=== PATIENT | female | born 1995 | race Caucasian/White ===

== ENCOUNTER 2017-12-12 18:58 | Emergency (ER) | payer OTHER ==
[2017-12-12 19:21] VITALS: BP 117/71
--- NOTE | 2017-12-12 20:02 | ER Document Report ---
ED General - General Chief Complaint: Nausea/Vomiting Stated Complaint: VOMITING Time Seen by Provider: 12/12/17 19:34 TRAVEL OUTSIDE OF THE [place] IN LAST 30 DAYS: No - HPI Notes: Patient is a 22-year-old female who is approximately 8 weeks who presents to the ED complaining of nausea and vomiting intermittently over the last couple weeks with an occasional lower pelvic cramping. Patient states that she did have a visit with her provider a week ago and saw her baby on the monitor. Patient states that she is still able to eat and drink, but does have a decreased p.o. intake due to the nausea and vomiting. She has not been taking any medicines for her symptoms. She has not noticed any vaginal discharge, odor, or bleeding. She has not had any other recent illness. Patient states that she does feel weak on occasion as well. Denies any IV drug use alcohol involvement. Denies any headache, fever, neck pain, URI, sore throat, chest pain, palpitations, syncope, cough, shortness of breath, wheeze, dyspnea, current abdominal pain, diarrhea, urinary retention, dysuria, hematuria , back pain, loss of control of bowel or bladder, numbness/tingling, saddle anesthesia, muscle paralysis/weakness, or rash. - Related Data Allergies/Adverse Reactions: Penicillins Allergy (Verified 12/12/17 19:00) Past Medical History - Social History Smoking Status: Unknown if Ever Smoked Family History: Reviewed & Not Pertinent Review of Systems - Review of Systems -: Yes All other systems reviewed and negative Physical Exam - Vital signs Vitals: Temp Pulse Resp BP Pulse Ox 98.4 F 74 14 117/71 98 12/12/17 19:20 12/12/17 19:20 12/12/17 19:20 12/12/17 19:20 12/12/17 19:20 - Notes Notes: PHYSICAL EXAMINATION: GENERAL: Well-appearing, well-nourished and in no acute distress. HEAD: Atraumatic, normocephalic. EYES: Pupils equal round and reactive to light, extraocular movements intact, sclera anicteric, conjunctiva are normal. ENT: Nares patent and without discharge. oropharynx clear without exudates. No tonsilar hypertrophy or erythema. Moist mucous membranes. NECK: Normal range of motion, supple without lymphadenopathy LUNGS: Breath sounds clear to auscultation bilaterally and equal. No wheezes rales or rhonchi. HEART: Regular rate and rhythm without murmurs, rubs, gallops. ABDOMEN: Soft, nontender, nondistended abdomen. No guarding, no rebound. No masses appreciated. Normal bowel sounds present. No CVA tenderness bilaterally. Musculoskeletal: FROM to passive/active. Strength 5+/5. Extremities: No cyanosis, clubbing, or edema b/l. Peripheral pulses 2+. Capillary refill less than 3 seconds. NEUROLOGICAL: Normal speech, normal gait. Normal sensory, motor exams PSYCH: Normal mood, normal affect. SKIN: Warm, Dry, normal turgor, no rashes or lesions noted. Course - Re-evaluation Re-evalutation: 12/12/17 22:33 Patient is an afebrile, well-hydrated, 22-year-old female who presents to the ED with nausea, vomiting, intermittent pelvic pain, suspect secondary to her at this time. Vitals are acceptable. PE is otherwise unremarkable. CBC, CMP, urinalysis were unremarkable for any acute pathology. See hCG. heart tones were not able to be heard at this time which is most likely due to her being early in her . She is tolerating p.o. without any difficulties. Zofran was given p.o. No other labs or imaging warranted at this time based on H&P. Patient has no significant tachycardia, tachypnea, or hypoxia. She is nontoxic-appearing. Patient's abdomen is soft and nontender at this time. Based on H&P today I have low suspicion for acute appendicitis, bowel obstruction, acute cholecystitis, acute cholangitis, perforated diverticulitis, incarcerated hernia, pancreatitis, perforated ulcer, peritonitis , sepsis, or other systemic emergent condition at this time. Patient is aware that her condition can change from initial presentation and she needs to monitor symptoms closely and seek medical attention if any acute changes. Rx for zofran. Strict return precautions. Conservative measures otherwise for symptoms. Recheck with OBGYN in 2-3 days. Recheck with your PCM in 2-3 days. Return to the ED with any worsening/concerning symptoms otherwise as reviewed in discharge. Patient is in agreement. - Vital Signs Vital signs: Temp Pulse Resp BP Pulse Ox 98.4 F 74 14 117/71 98 12/12/17 19:20 12/12/17 19:20 12/12/17 19:20 12/12/17 19:20 12/12/17 19:20 - Laboratory Result Diagrams: 12/12/17 20:24 12/12/17 20:24 Laboratory results interpreted by me: 12/12/17 12/12/17 12/12/17 20:24 20:24 20:33 WBC 14.8 H Absolute Neutrophils 10.8 H Beta HCG, Quant 113451.00 H Urine Ketones 20 H Ur Leukocyte Esterase SMALL H Discharge - Discharge Clinical Impression: Pelvic pain affecting Qualifiers: Trimester: first trimester Qualified Code(s): O26.891 - Other specified related conditions, first trimester; R10.2 - Pelvic and perineal pain ; R10.2 - Pelvic and perineal pain Condition: Stable Disposition: HOME, SELF-CARE Instructions: Pelvic Pain in ([facility]) Additional Instructions: Maintain fluid intake Proper hygenic technique Keep the skin clean Tylenol as needed Return immediately if symptoms worsen F/u with your PCM/OBGYN in 2-3 days for a recheck Return to the ED with any development of ASTORGA/fever, trouble with vision, eye redness, worsening pain, urethral discharge, urinary retention, blood in the urine, worsening abdominal pain, n/v, Chest Pain, shortness of breath, joint pains, trouble breathing, vaginal discharge/bleeding, or any other worsening/ concerning symptoms as needed otherwise. Prescriptions: Ondansetron [Zofran Odt 4 mg Tablet] 1 - 2 tab PO Q4H PRN #15 tab.rapdis PRN Reason: For Nausea/Vomiting Referrals: [facility] [Provider Group] - Follow up as needed
[2017-12-12] MEDS ORDERED: ONDANSETRON 4 MG TAB.RAPDIS PO ONE (20:42)
[2017-12-12 20:43] LABS: ABSOLUTE BASOPHILS # (AUTO) 0.1 10^3/uL (0.0-0.2); ABSOLUTE EOSINOPHILS # (AUTO) 0.1 10^3/uL (0.0-0.6); ABSOLUTE LYMPHOCYTES (AUTO) 2.8 10^3/uL (0.5-4.7); ABSOLUTE NEUT (AUTO) 10.8 10^3/uL (1.7-8.2); BASOPHILS % (AUTO) 0.5 % (0-2); EOSINOPHILS % (AUTO) 0.8 % (0-6); HEMATOCRIT 40.2 % (36.0-47.0); HEMOGLOBIN 13.6 g/dL (12.0-15.5); LYMPHOCYTES % (AUTO) 18.9 % (13-45); MEAN CORPUSCULAR HEMOGLOBIN 30.6 pg (27.0-33.4); MEAN CORPUSCULAR HGB CONC 33.9 g/dL (32.0-36.0); MEAN CORPUSCULAR VOLUME 90 fl (80-97); MONOCYTES % (AUTO) 6.8 % (3-13); PLATELET COUNT 299 10^3/uL (150-450); RED BLOOD COUNT 4.45 10^6/uL (3.72-5.28); RED CELL DISTRIBUTION WIDTH 13.7 % (11.5-14.0); TOTAL CELLS COUNTED % (AUTO) 100 %; WHITE BLOOD COUNT 14.8 10^3/uL (4.0-10.5)
[2017-12-12 20:48] LABS: APPEARANCE,URINE CLEAR; BILIRUBIN,URINE NEGATIVE (NEGATIVE); COLOR,URINE YELLOW; GLUCOSE, URINE NEGATIVE (NEGATIVE); KETONES,URINE 20 mg/dL (NEGATIVE); LEUKOCYTE ESTERASE,URINE SMALL (NEGATIVE); NITRITE,URINE NEGATIVE (NEGATIVE); PROTEIN,URINE NEGATIVE (NEGATIVE); URINE SPECIFIC GRAVITY 1.004; UROBILINOGEN,URINE NEGATIVE mg/dL (<2.0)
[2017-12-12 20:58] LABS: ALANINE AMINOTRANSFERASE 39 U/L (9-52); ALBUMIN 4.5 g/dL (3.5-5.0); ALKALINE PHOSPHATASE 59 U/L (38-126); ANION GAP 17 (5-19); ASPARTATE AMINO TRANSFERASE 25 U/L (14-36); BILIRUBIN,DIRECT 0.3 mg/dL (0.0-0.4); BILIRUBIN,TOTAL 0.5 mg/dL (0.2-1.3); BLOOD UREA NITROGEN 7 mg/dL (7-20); CALCIUM 10.2 mg/dL (8.4-10.2); CARBON DIOXIDE 22 mmol/L (22-30); CHLORIDE 102 mmol/L (98-107); GLUCOSE 78 mg/dL (75-110); TOTAL PROTEIN 7.6 g/dL (6.3-8.2)
== END 2017-12-12 23:16 | disposition home or self-care (01) ==
LOC: ER 18:58
DX: O26.891 Other specified pregnancy related conditions, first trimester (principal); R10.2 Pelvic and perineal pain; R53.1 Weakness; O21.9 Vomiting of pregnancy, unspecified; Z3A.00 Weeks of gestation of pregnancy not specified; Z88.0 Allergy status to penicillin
CPT/HCPCS: 99284; 36415; 84702; 85025; 80053; 81001; S0119

== ENCOUNTER 2017-12-17 15:23 | Observation (INO) | payer OTHER ==
[2017-12-17] MEDS ORDERED: PROMETHAZINE HCL INJ 25 MG/1 ML VIAL IV PRN (16:25)
[2017-12-17] MEDS ORDERED: DEXTROSE 5%-LACTATED RINGERS 1,000 ML IV PRN (16:27)
[2017-12-17] MEDS ORDERED: NORMAL SALINE 1000 ML 1,000 ML IV PRN (16:27)
[2017-12-17 17:05] LABS: ABSOLUTE BASOPHILS # (AUTO) 0.1 10^3/uL (0.0-0.2); ABSOLUTE EOSINOPHILS # (AUTO) 0.1 10^3/uL (0.0-0.6); ABSOLUTE LYMPHOCYTES (AUTO) 2.3 10^3/uL (0.5-4.7); ABSOLUTE NEUT (AUTO) 9.7 10^3/uL (1.7-8.2); BASOPHILS % (AUTO) 0.4 % (0-2); EOSINOPHILS % (AUTO) 0.6 % (0-6); HEMOGLOBIN 13.2 g/dL (12.0-15.5); LYMPHOCYTES % (AUTO) 17.4 % (13-45); MEAN CORPUSCULAR HEMOGLOBIN 30.5 pg (27.0-33.4); MEAN CORPUSCULAR HGB CONC 33.9 g/dL (32.0-36.0); MEAN CORPUSCULAR VOLUME 90 fl (80-97); MONOCYTES % (AUTO) 7.4 % (3-13); PLATELET COUNT 268 10^3/uL (150-450); RED BLOOD COUNT 4.33 10^6/uL (3.72-5.28); RED CELL DISTRIBUTION WIDTH 13.9 % (11.5-14.0); SEGMENTED NEUTROPHILS % (AUTO) 74.2 % (42-78); TOTAL CELLS COUNTED % (AUTO) 100 %; WHITE BLOOD COUNT 13.1 10^3/uL (4.0-10.5)
[2017-12-17 17:20] LABS: ALANINE AMINOTRANSFERASE 45 U/L (9-52); ALBUMIN 4.4 g/dL (3.5-5.0); ALKALINE PHOSPHATASE 56 U/L (38-126); ANION GAP 17 (5-19); ASPARTATE AMINO TRANSFERASE 40 U/L (14-36); BILIRUBIN,DIRECT 0.4 mg/dL (0.0-0.4); BILIRUBIN,TOTAL 0.6 mg/dL (0.2-1.3); BLOOD UREA NITROGEN 8 mg/dL (7-20); CALCIUM 10.1 mg/dL (8.4-10.2); CARBON DIOXIDE 24 mmol/L (22-30); CHLORIDE 102 mmol/L (98-107); GLUCOSE 105 mg/dL (75-110); POTASSIUM 3.8 mmol/L (3.6-5.0); SODIUM 142.6 mmol/L (137-145); TOTAL PROTEIN 7.5 g/dL (6.3-8.2)
[2017-12-17 18:38] LABS: AMORPHOUS SEDIMENT,URINE TRACE /HPF; APPEARANCE,URINE CLOUDY; BILIRUBIN,URINE NEGATIVE (NEGATIVE); CALCIUM OXALATE CRYSTALS,URINE FEW /HPF; GLUCOSE, URINE NEGATIVE (NEGATIVE); KETONES,URINE NEGATIVE (NEGATIVE); LEUKOCYTE ESTERASE,URINE MODERATE (NEGATIVE); NITRITE,URINE NEGATIVE (NEGATIVE); PROTEIN,URINE NEGATIVE (NEGATIVE); URINE SPECIFIC GRAVITY 1.024
[2017-12-17 18:40] LABS: COLOR,URINE YELLOW
[2017-12-17] MEDS: ONDANSETRON 4 MG TAB.RAPDIS PO PRN (22:51)
[2017-12-18 07:21] LABS: ALANINE AMINOTRANSFERASE 55 U/L (9-52); ALBUMIN 3.4 g/dL (3.5-5.0); ALKALINE PHOSPHATASE 49 U/L (38-126); ANION GAP 11 (5-19); ASPARTATE AMINO TRANSFERASE 35 U/L (14-36); BILIRUBIN,DIRECT 0.3 mg/dL (0.0-0.4); BILIRUBIN,TOTAL 0.6 mg/dL (0.2-1.3); BLOOD UREA NITROGEN 3 mg/dL (7-20); CALCIUM 9.1 mg/dL (8.4-10.2); CARBON DIOXIDE 20 mmol/L (22-30); CHLORIDE 109 mmol/L (98-107); GLUCOSE 81 mg/dL (75-110); POTASSIUM 3.5 mmol/L (3.6-5.0); SODIUM 140.4 mmol/L (137-145)
[2017-12-18] MEDS: ONDANSETRON 4 MG TAB.RAPDIS PO PRN (08:20)
[2017-12-18 12:09] VITALS: BP 116/61
--- NOTE | 2017-12-20 22:30 | DISCHARGE SUMMARY E ---
Discharge Summary NAME: TRACY LAN : 1995 AGE: 22Y ADMITTED: 12/17/2017 DISCHARGED: 12/18/2017 FINAL DIAGNOSES: 1. Intrauterine 8 weeks with hyperemesis gravidarum. 2. Dehydration. HISTORY OF PRESENT ILLNESS: This is a 22-year-old, 1, para 0, whose last menstrual period was 10/18, known to be 8 weeks and was having problems with hyperemesis, dehydration, and weight loss. She was evaluated in the office, found to be dehydrated, and it was elected to bring her in the hospital for further evaluation and treatment. PAST MEDICAL HISTORY: Essentially negative. ALLERGIES: She is allergic to PENICILLIN. MEDICATIONS: She was currently taking Zofran and B6, because of the hyperemesis. VITAL SIGNS: At the time of admission her weight was 169 pounds with *------* that is about a 7 pound weight loss over previous measurement. Height was 60 inches, blood pressure 102/70, temperature was 98.5, BMI was 33, pulse was 104, pO2 was 96. REVIEW OF SYSTEMS: Revealed HEENT to be within normal limits. Trachea was midline. Thyroid was not enlarged. Lungs were clear. Heart regular rhythm without murmurs. Abdomen is soft, nondistended, nontender with no organomegaly. Pelvic examination was consistent with an 8 week intrauterine , positive heart rate, positive movement on Sono. Extremities were within normal limits. Neuro system revealed orientated x3 with motor, cranial, and sensory nerves being grossly intact. DIAGNOSTICS: At the time of admission her white count was 13.1, hemoglobin 13.2, platelets was 268. Sodium was 142, potassium 3.8, chloride is 102. Liver enzymes revealed AST at 40, ALT at 45. She had a GFR greater than 60. HOSPITAL COURSE: It was our impression to rehydrate her with IVs and treated for the nausea and vomiting. She was started on IV rehydration therapy alternating normal saline with ringers lactated, 5% dextrose. We came in the next day. She had experienced no additional nausea or vomiting. No vaginal bleeding at the time. On 12/18, her temperature was 98.5, blood pressure was 112/62, pulse was 59, respirations were 16. She was still a little bit nauseated but as stated no vomiting. She was alert. Motor, cranial, and sensory nerves intact. Lungs were clear. Heart regular rhythm without murmurs, abdomen was soft. At that time the assessment was that she had been adequately rehydrated. She was sent on a BRAT diet. She was to follow up with us in the office on 12/20/2017. DICTATING PHYSICIAN: AVINASH JUNIOR M.D. [id number] PHY#: [id number] ID: [id number] JOB#: [id number] ACCT: [id number] cc:AVINASH JUNIOR M.D. >
== END 2017-12-18 12:31 | disposition home or self-care (01) ==
LOC: 2S 15:23
PROVIDERS: ADMIT Obstetrics & Gynecology; ATTEND Obstetrics & Gynecology
DX: O21.1 Hyperemesis gravidarum with metabolic disturbance (principal); Z3A.08 8 weeks gestation of pregnancy; R63.4 Abnormal weight loss; Z68.33 Body mass index [BMI] 33.0-33.9, adult
CPT/HCPCS: 86900; 86901; 36415 ×2; 86850; 85025; 86592; 80053 ×2; 81001; G0378 ×2; G0379; S0119 ×2; J7030

== ENCOUNTER 2018-04-04 06:43 | Outpatient (CLI) | payer OTHER ==
[2018-04-04 08:16] LABS: APPEARANCE,URINE CLOUDY; BILIRUBIN,URINE NEGATIVE (NEGATIVE); COLOR,URINE YELLOW; GLUCOSE, URINE NEGATIVE (NEGATIVE); KETONES,URINE NEGATIVE (NEGATIVE); LEUKOCYTE ESTERASE,URINE TRACE (NEGATIVE); NITRITE,URINE NEGATIVE (NEGATIVE); PROTEIN,URINE NEGATIVE (NEGATIVE); URINE SPECIFIC GRAVITY 1.015; UROBILINOGEN,URINE NEGATIVE mg/dL (<2.0)
[2018-04-04 08:26] LABS: URINE AMPHETAMINES SCREEN NEGATIVE; URINE BARBITURATES SCREEN NEGATIVE; URINE BENZODIAZEPINES SCREEN NEGATIVE; URINE COCAINE SCREEN NEGATIVE; URINE MARIJUANA (THC) SCREEN NEGATIVE; URINE METHADONE SCREEN NEGATIVE; URINE PHENCYCLIDINE SCREEN NEGATIVE
[2018-04-04 09:14] LABS: ABSOLUTE EOSINOPHILS # (AUTO) 0.2 10^3/uL (0.0-0.6); ABSOLUTE LYMPHOCYTES (AUTO) 2.4 10^3/uL (0.5-4.7); ABSOLUTE NEUT (AUTO) 8.6 10^3/uL (1.7-8.2); BASOPHILS % (AUTO) 0.4 % (0-2); HEMATOCRIT 29.7 % (36.0-47.0); HEMOGLOBIN 10.5 g/dL (12.0-15.5); LYMPHOCYTES % (AUTO) 19.6 % (13-45); MEAN CORPUSCULAR HEMOGLOBIN 33.5 pg (27.0-33.4); MEAN CORPUSCULAR HGB CONC 35.2 g/dL (32.0-36.0); MEAN CORPUSCULAR VOLUME 95 fl (80-97); PLATELET COUNT 287 10^3/uL (150-450); RED BLOOD COUNT 3.13 10^6/uL (3.72-5.28); RED CELL DISTRIBUTION WIDTH 13.7 % (11.5-14.0); TOTAL CELLS COUNTED % (AUTO) 100 %; WHITE BLOOD COUNT 12.3 10^3/uL (4.0-10.5)
--- NOTE | 2018-04-04 09:45 | RADIOLOGY REPORT (SQ) ---
EXAM DESCRIPTION: U/S OB LIMITED COMPLETED DATE/TIME: 04/04/2018 9:34 am REASON FOR STUDY: cervical length for complaints of pressure COMPARISON: None. TECHNIQUE: Limited transabdominal grayscale ultrasound for evaluation of specific requested obstetri pop parameters. LIMITATIONS: None. FINDINGS: CERVICAL LENGTH: 4.8 cm. Closed. HEVER: 14.1 cm. FHR: 147 beats per minute. PRESENTATION: Cephalic. PLACENTA: Posterior. OTHER: No other significant findings. IMPRESSION: LIMITED OBSTETRICAL ULTRASOUND WITH MEASURED PARAMETERS DELINEATED ABOVE. Trimester of : Second trimester - 13 weeks 1 day to 27 weeks 6 days. TECHNICAL DOCUMENTATION: JOB ID: [id number] [employer]- All Rights Reserved Reading location - IP/workstation name: ENGINEER OF SYSTEM [email or web address]
== END 2018-04-04 11:30 | disposition home or self-care (01) ==
LOC: LC 06:43
PROVIDERS: ATTEND Obstetrics & Gynecology Gynecology
PROC: 4A1HXCZ Monitoring of Products of Conception, Cardiac Rate, External Approach (ICD-10-PCS; principal; 2018-04-04)
DX: O26.892 Other specified pregnancy related conditions, second trimester (principal); R10.2 Pelvic and perineal pain; O99.282 Endocrine, nutritional and metabolic diseases complicating pregnancy, second trimester; E86.0 Dehydration; Z3A.24 24 weeks gestation of pregnancy
CPT/HCPCS: 36415; 76815; 80307; 81001; 85025; 94760

== ENCOUNTER 2018-04-28 21:18 | Outpatient (CLI) | payer OTHER ==
[2018-04-28 22:05] LABS: APPEARANCE,URINE CLOUDY; BILIRUBIN,URINE NEGATIVE (NEGATIVE); COLOR,URINE AMBER; GLUCOSE, URINE NEGATIVE (NEGATIVE); KETONES,URINE 20 mg/dL (NEGATIVE); LEUKOCYTE ESTERASE,URINE MODERATE (NEGATIVE); NITRITE,URINE NEGATIVE (NEGATIVE); PROTEIN,URINE 100 mg/dL (NEGATIVE); URINE SPECIFIC GRAVITY 1.024; UROBILINOGEN,URINE NEGATIVE mg/dL (<2.0)
[2018-04-28 22:19] LABS: URINE AMPHETAMINES SCREEN NEGATIVE; URINE BARBITURATES SCREEN NEGATIVE; URINE BENZODIAZEPINES SCREEN NEGATIVE; URINE COCAINE SCREEN NEGATIVE; URINE MARIJUANA (THC) SCREEN NEGATIVE; URINE METHADONE SCREEN NEGATIVE; URINE PHENCYCLIDINE SCREEN NEGATIVE
== END 2018-04-28 22:20 | disposition home or self-care (01) ==
LOC: LC 21:18
PROVIDERS: ATTEND Obstetrics & Gynecology
PROC: 4A1HXCZ Monitoring of Products of Conception, Cardiac Rate, External Approach (ICD-10-PCS; principal; 2018-04-28)
DX: O26.892 Other specified pregnancy related conditions, second trimester (principal); R10.9 Unspecified abdominal pain; Z3A.27 27 weeks gestation of pregnancy
CPT/HCPCS: 80307; 81001

== ENCOUNTER 2018-05-19 13:00 | Outpatient (CLI) | payer OTHER ==
[2018-05-19 13:06] VITALS: BP 129/75
--- NOTE | 2018-05-19 13:41 | ER Document Report ---
ED Medical Screen (RME) - General Chief Complaint: Nausea/Vomiting Stated Complaint: VOMITING Notes: Patient is a 23-year-old female that is approximately 30 weeks , complains of nausea and vomiting, seen by triage nursing, and will be disposition to L&D, for evaluation. Vital signs reviewed. Hemodynamically stable, no tachycardia, blood pressure 129/75 I did not personally see or evaluate this patient. TRAVEL OUTSIDE OF THE [place] IN LAST 30 DAYS: No - Related Data Allergies/Adverse Reactions: Penicillins Allergy (Verified 04/28/18 21:33) shellfish derived Allergy (Verified 04/28/18 21:33) Past Medical History Renal/ Medical History: Denies: Hx Peritoneal Dialysis Physical Exam - Vital signs Vitals: Temp Pulse Resp BP Pulse Ox 98.6 F 79 16 129/75 H 98 05/19/18 13:05 05/19/18 13:05 05/19/18 13:05 05/19/18 13:05 05/19/18 13:05 Course - Vital Signs Vital signs: Temp Pulse Resp BP Pulse Ox 98.6 F 79 16 129/75 H 98 05/19/18 13:05 05/19/18 13:05 05/19/18 13:05 05/19/18 13:05 05/19/18 13:05 Doctor's Discharge - Discharge Clinical Impression: Nausea & vomiting Qualifiers: Vomiting type: unspecified Vomiting Intractability: unspecified Qualified Code( s): R11.2 - Nausea with vomiting, unspecified Condition: Stable Disposition: LABOR CHECK
[2018-05-19] MEDS ORDERED: RINGERS SOLUTION,LACTATED 1,000 ML IV ONE (14:11)
[2018-05-19 14:23] LABS: APPEARANCE,URINE CLOUDY; BILIRUBIN,URINE NEGATIVE (NEGATIVE); CALCIUM OXALATE CRYSTALS,URINE MODERATE /HPF; GLUCOSE, URINE NEGATIVE (NEGATIVE); KETONES,URINE 80 mg/dL (NEGATIVE); LEUKOCYTE ESTERASE,URINE SMALL (NEGATIVE); NITRITE,URINE NEGATIVE (NEGATIVE); PROTEIN,URINE 30 mg/dL (NEGATIVE); URINE SPECIFIC GRAVITY 1.023; UROBILINOGEN,URINE NEGATIVE mg/dL (<2.0)
[2018-05-19 14:26] LABS: COLOR,URINE YELLOW
[2018-05-19 14:45] LABS: URINE AMPHETAMINES SCREEN NEGATIVE; URINE BARBITURATES SCREEN NEGATIVE; URINE BENZODIAZEPINES SCREEN NEGATIVE; URINE COCAINE SCREEN NEGATIVE; URINE MARIJUANA (THC) SCREEN NEGATIVE; URINE METHADONE SCREEN NEGATIVE; URINE PHENCYCLIDINE SCREEN NEGATIVE
== END 2018-05-19 15:32 | disposition admitted as inpatient to this hospital (09) ==
LOC: EDSTATUS 13:34 → LC 13:35
PROVIDERS: ATTEND Obstetrics & Gynecology Gynecology
PROC: 4A1HXCZ Monitoring of Products of Conception, Cardiac Rate, External Approach (ICD-10-PCS; principal; 2018-05-19)
DX: O99.283 Endocrine, nutritional and metabolic diseases complicating pregnancy, third trimester (principal); E86.0 Dehydration; R11.2 Nausea with vomiting, unspecified; Z3A.30 30 weeks gestation of pregnancy
CPT/HCPCS: 80307; 81001

== ENCOUNTER 2018-05-26 17:39 | Outpatient (CLI) | payer OTHER ==
[2018-05-26 18:35] LABS: APPEARANCE,URINE TURBID; BILIRUBIN,URINE NEGATIVE (NEGATIVE); COLOR,URINE AMBER; GLUCOSE, URINE NEGATIVE (NEGATIVE); KETONES,URINE 80 mg/dL (NEGATIVE); LEUKOCYTE ESTERASE,URINE LARGE (NEGATIVE); NITRITE,URINE NEGATIVE (NEGATIVE); PROTEIN,URINE 100 mg/dL (NEGATIVE); URINE SPECIFIC GRAVITY 1.025; UROBILINOGEN,URINE NEGATIVE mg/dL (<2.0)
[2018-05-26 18:49] LABS: URINE AMPHETAMINES SCREEN NEGATIVE; URINE BARBITURATES SCREEN NEGATIVE; URINE BENZODIAZEPINES SCREEN NEGATIVE; URINE COCAINE SCREEN NEGATIVE; URINE MARIJUANA (THC) SCREEN NEGATIVE; URINE METHADONE SCREEN NEGATIVE; URINE PHENCYCLIDINE SCREEN NEGATIVE
== END 2018-05-26 18:55 | disposition home or self-care (01) ==
LOC: LC 17:39
PROVIDERS: ATTEND Obstetrics & Gynecology
PROC: 4A1HXCZ Monitoring of Products of Conception, Cardiac Rate, External Approach (ICD-10-PCS; principal; 2018-05-26)
DX: O99.613 Diseases of the digestive system complicating pregnancy, third trimester (principal); K52.9 Noninfective gastroenteritis and colitis, unspecified; Z3A.31 31 weeks gestation of pregnancy
CPT/HCPCS: 80307; 81001

== ENCOUNTER 2018-06-14 19:46 | Outpatient (CLI) | payer OTHER ==
[2018-06-14 21:27] LABS: APPEARANCE,URINE CLOUDY; BILIRUBIN,URINE NEGATIVE (NEGATIVE); COLOR,URINE YELLOW; GLUCOSE, URINE NEGATIVE (NEGATIVE); KETONES,URINE NEGATIVE (NEGATIVE); LEUKOCYTE ESTERASE,URINE MODERATE (NEGATIVE); NITRITE,URINE NEGATIVE (NEGATIVE); PROTEIN,URINE 30 mg/dL (NEGATIVE); URINE SPECIFIC GRAVITY 1.024; UROBILINOGEN,URINE NEGATIVE mg/dL (<2.0)
[2018-06-14 21:38] LABS: URINE AMPHETAMINES SCREEN NEGATIVE; URINE BARBITURATES SCREEN NEGATIVE; URINE BENZODIAZEPINES SCREEN NEGATIVE; URINE COCAINE SCREEN NEGATIVE; URINE MARIJUANA (THC) SCREEN NEGATIVE; URINE METHADONE SCREEN NEGATIVE; URINE PHENCYCLIDINE SCREEN NEGATIVE
--- NOTE | 2018-06-14 22:31 | Non Stress Test Report ---
Non Stress Test Datetime Report Generated by CPN: 06/14/2018 22:30 DEMOGRAPHIC EGA NST: 34.1 INDICATION Indication for Study: Ordered by Provider; Other Indication for Study (NST) Other: Labor check VITAL SIGNS Temperature - NST: 96.8 Pulse - NST: 63 RESP - NST: 16 NBPSYS NST: 115 NBPDIA NST: 72 URINE RESULTS Urine Protein, NST: Positive Urine Ketones - NST: Negative Urine Glucose - NST: Negative Urine Blood - NST: Negative MONITORING Monitor Explained: Monitor Explained; Test Explained; Patient Verbalized Understanding Time on Monitor: 06/14/2018 20:25 Time off Monitor: 06/14/2018 22:21 NST Duration: 116 NST INTERVENTIONS NST Interventions: PO Hydration; Reposition Patient Physician Notified NST: Dr. Kenny BABY A: [id number] BABY A Movement : Present Contraction Frequency : None FHR Baseline : 125 Accelerations : 15X15 Decelerations : None Variability : Moderate 6-25bpm NST Review: Meets Criteria for Reactive NST NST Review and Verified By : B.Ring RN NST Results: Reactive NST REPORT Report Trigger: Send Report
== END 2018-06-14 22:21 | disposition home or self-care (01) ==
LOC: LC 19:46
PROVIDERS: ATTEND Obstetrics & Gynecology
PROC: 4A1HXCZ Monitoring of Products of Conception, Cardiac Rate, External Approach (ICD-10-PCS; principal; 2018-06-14)
DX: Z34.93 Encounter for supervision of normal pregnancy, unspecified, third trimester (principal); Z3A.34 34 weeks gestation of pregnancy
CPT/HCPCS: 59025; 80307; 81001; 84112

== ENCOUNTER 2019-02-09 00:29 | Emergency (ER) | payer OTHER ==
[2019-02-09] MEDS ORDERED: LIDOCAINE 2% VISCOUS SOLN 20 ML UDCUP PO ONE (03:56)
[2019-02-09] MEDS ORDERED: MAG HYDROX/AL HYDROX/SIMETH SUSP 30 ML UDCUP PO ONE (03:56)
[2019-02-09] MEDS ORDERED: METOCLOPRAMIDE HCL ORAL SOLN 10 MG/10 ML UDCUP PO ONE (03:56)
--- NOTE | 2019-02-09 04:08 | ER Document Report ---
ED GI/ - General Chief Complaint: Epigastric Pain Stated Complaint: STOMACH AND BACK PAIN Time Seen by Provider: 02/09/19 03:56 Primary Care Provider: AVINASH JUNIOR MD [Primary Care Provider] - Follow up as needed Notes: 24-year-old female patient emergency part chief complaint of abdominal pain. Patient states that she was seen at another ER 12 hours ago and told she probably had an ulcer and was given medicine but states that the medicine is not working. Cannot tell me what medicine that is though. States that she wants something for the pain. States that she received labs and an ultrasound TRAVEL OUTSIDE OF THE [place] IN LAST 30 DAYS: No - HPI Patient complains to provider of: Abdominal pain Quality of pain: Stabbing Severity at maximum: Moderate Severity in ED: Moderate Pain Level: 5 Location: Epigastric Vaginal bleeding (Compared to normal period): None - Related Data Allergies/Adverse Reactions: Penicillins Allergy (Verified 06/14/18 20:14) shellfish derived Allergy (Verified 06/14/18 20:14) Past Medical History - General Information source: Patient - Social History Smoking Status: Never Smoker Chew tobacco use (# tins/day): No Frequency of alcohol use: None Drug Abuse: None Lives with: Family Family History: Reviewed & Not Pertinent Patient has suicidal ideation: No Patient has homicidal ideation: No - Medical History Medical History: Negative Renal/ Medical History: Denies: Hx Peritoneal Dialysis Review of Systems - Review of Systems Notes: Constitutional: denies: Chills, Diaphoresis, Fever, Malaise, Weakness EENT: denies: Eye discharge, Blurred vision, Tearing, Double vision, Nose congestion, Nose discharge, Throat swelling, Mouth pain Cardiovascular: denies: Palpitations, Heart racing, Orthopnea, Dyspnea, Chest pain Respiratory: denies: Cough, Hurts to breathe, Wheezing, Shortness of breath Gastrointestinal: Positive epigastric abdominal pain, nausea and vomiting, no diarrhea. Genitourinary: denies: Burning, Dysuria, Discharge, Frequency, Flank pain, Hematuria Musculoskeletal: denies: Joint pain, Joint swelling, Muscle pain, Muscle stiffness, back pain Hematologic/Lymphatic: denies: Anemia, Easy bleeding, Easy bruising, Blood clots Neurological/Psychological: denies: Confusion, Dementia, Depression, Loss of consciousness Skin: No lesions, no masses, no skin breakdown, no abscesses Physical Exam - Vital signs Vitals: Temp Pulse Resp BP Pulse Ox 98.7 F 93 17 142/90 H 100 02/09/19 00:43 02/09/19 00:43 02/09/19 00:43 02/09/19 00:43 02/09/19 00:43 Interpretation: Normal - General General appearance: Appears well, Alert - HEENT Head: Normocephalic, Atraumatic Eyes: Normal Pupils: PERRL - Respiratory Respiratory status: No respiratory distress Chest status: Nontender Breath sounds: Normal Chest palpation: Normal - Cardiovascular Rhythm: Regular Heart sounds: Normal auscultation Murmur: No - Abdominal Inspection: Normal Distension: No distension Bowel sounds: Normal Tenderness: Tender - Mild tenderness to palpation in the epigastric region. No guarding or rebound. Organomegaly: No organomegaly - Back Back: Normal, Nontender - Extremities General upper extremity: Normal inspection, Nontender, Normal color, Normal ROM, Normal temperature General lower extremity: Normal inspection, Nontender, Normal color, Normal ROM, Normal temperature, Normal weight bearing. No: Awa's sign - Neurological Neuro grossly intact: Yes Cognition: Normal Orientation: AAOx4 Domitila Coma Scale Eye Opening: Spontaneous [place] Coma Scale Verbal: Oriented [place] Coma Scale Motor: Obeys Commands Domitila Coma Scale Total: 15 Speech: Normal Motor strength normal: LUE, RUE, LLE, RLE Sensory: Normal - Psychological Associated symptoms: Normal affect, Normal mood - Skin Skin Temperature: Warm Skin Moisture: Dry Skin Color: Normal Course - Re-evaluation Re-evalutation: 02/09/19 04:45 A xiomara conversation was had with patient with regards to her expectations of the visit today. She was seen in another ER 12 hours ago with labs and ultrasound and a prescription for something which she does not know what it is because she did not bring it with her. States that she just wants something for the pain. I did a bedside ultrasound of the right upper quadrant which did not reveal any gallbladder wall thickness, no stones, no pericholecystic fluid and no obvious common bile duct dilation. Do not feel greatly compelled at this time to do any further imaging unless her labs come back abnormal. She has normal vital signs. 02/09/19 06:58 Laboratory 02/09/19 02/09/19 05:13 05:13 Sodium 140.0 Potassium 4.1 Chloride 105 Carbon Dioxide 22 Anion Gap 13 BUN 9 Creatinine 0.58 Est GFR ( Amer) > 60 Est GFR (Non-Af Amer) > 60 Glucose 123 H Calcium 9.7 Total Bilirubin 0.3 Direct Bilirubin 0.2 Neonat Total Bilirubin Not Reportable Neonat Direct Bilirubin Not Reportable Neonat Indirect Bili Not Reportable AST 18 ALT 16 Alkaline Phosphatase 60 Total Protein 7.3 Albumin 4.2 Lipase 106.1 Urine Color YELLOW Urine Appearance SLIGHTLY-CLOUDY Urine pH 6.0 Ur Specific Wake 1.020 Urine Protein NEGATIVE Urine Glucose (UA) NEGATIVE Urine Ketones NEGATIVE Urine Blood NEGATIVE Urine Nitrite NEGATIVE Urine Bilirubin NEGATIVE Urine Urobilinogen NEGATIVE Ur Leukocyte Esterase SMALL H Urine WBC (Auto) 29 Urine RBC (Auto) 2 Urine Bacteria (Auto) TRACE Squamous Epi Cells Auto 7 Urine Mucus (Auto) RARE Urine Yeast (Budding) PRESENT Urine Ascorbic Acid NEGATIVE Urine HCG, Qual NEGATIVE Patient symptoms were resolved after GI cocktail. She already had a CBC so that was not repeated here. Her LFTs were normal and ultrasound at the bedside was unremarkable. We will give her follow-up information for GI, primary care and general surgery - Vital Signs Vital signs: Temp Pulse Resp BP Pulse Ox 98.7 F 93 17 142/90 H 100 02/09/19 00:43 02/09/19 00:43 02/09/19 00:43 02/09/19 00:43 02/09/19 00:43 - Laboratory Result Diagrams: 02/09/19 05:13 Laboratory results interpreted by me: 02/09/19 02/09/19 05:13 05:13 Glucose 123 H Ur Leukocyte Esterase SMALL H Discharge - Discharge Clinical Impression: Epigastric abdominal pain Condition: Good Disposition: ADMITTED INPATIENT Instructions: Abdominal Pain ([facility]) Additional Instructions: It is very important that you follow-up with your primary care doctor as you will more likely need to have an endoscopy if the symptoms continue. In the event you notice any black tarry stool, bright red blood in your stool, vomiting blood or for any other concerns she should return. We did a helical back to pylori test on you but the results will likely take 1 or 2 weeks to come back. Please have your primary care doctor get records. Prescriptions: Dicyclomine HCl [Bentyl 10 mg Capsule] 1 cap PO TID PRN #30 cap PRN Reason: For Breakthrough Pain Esomeprazole Magnesium [Nexium 24Hr] 20 mg PO QAM 30 Days #30 capsule. Sucralfate [Carafate 1 gm Tablet] 1 gm PO ACHS #120 tablet Sucralfate [Carafate] 1 gm PO ACHS 10 Days #400 oral.susp Referrals: ELMER SAUCEDA MD [ACTIVE STAFF] - Follow up as needed LACY HERMOSILLO MD [ACTIVE STAFF] - Follow up as needed AVINASH JUNIOR MD [Primary Care Provider] - Follow up in 3-5 days
[2019-02-09] MEDS ORDERED: ACETAMINOPHEN 325 MG TABLET PO ONE (04:31)
[2019-02-09 05:31] LABS: APPEARANCE,URINE SLIGHTLY-CLOUDY; BILIRUBIN,URINE NEGATIVE (NEGATIVE); COLOR,URINE YELLOW; GLUCOSE, URINE NEGATIVE (NEGATIVE); KETONES,URINE NEGATIVE (NEGATIVE); LEUKOCYTE ESTERASE,URINE SMALL (NEGATIVE); NITRITE,URINE NEGATIVE (NEGATIVE); PROTEIN,URINE NEGATIVE (NEGATIVE); UROBILINOGEN,URINE NEGATIVE mg/dL (<2.0)
[2019-02-09 05:45] LABS: ALANINE AMINOTRANSFERASE 16 U/L (9-52); ALBUMIN 4.2 g/dL (3.5-5.0); ALKALINE PHOSPHATASE 60 U/L (38-126); ANION GAP 13 (5-19); ASPARTATE AMINO TRANSFERASE 18 U/L (14-36); BILIRUBIN,DIRECT 0.2 mg/dL (0.0-0.4); BILIRUBIN,TOTAL 0.3 mg/dL (0.2-1.3); BLOOD UREA NITROGEN 9 mg/dL (7-20); CALCIUM 9.7 mg/dL (8.4-10.2); CARBON DIOXIDE 22 mmol/L (22-30); CHLORIDE 105 mmol/L (98-107); GLUCOSE 123 mg/dL (75-110); LIPASE 106.1 U/L (23-300); POTASSIUM 4.1 mmol/L (3.6-5.0); TOTAL PROTEIN 7.3 g/dL (6.3-8.2)
[2019-02-09 09:28] VITALS: BP 128/79
== END 2019-02-09 07:12 | disposition other institution (70) ==
LOC: ER 00:29
DX: R10.13 Epigastric pain (principal); M54.9 Dorsalgia, unspecified; Z88.0 Allergy status to penicillin; Z91.013 Allergy to seafood
CPT/HCPCS: 99283; 86677; 87086; 83690; 81025; 80053; 81001; J3490

== ENCOUNTER 2019-12-03 05:04 | Emergency (ER) | payer MEDICAID, OTHER ==
[2019-12-03] MEDS ORDERED: NORMAL SALINE 1000 ML 1,000 ML IV ONE (05:43)
[2019-12-03] MEDS ORDERED: ONDANSETRON HCL INJ/PF 4 MG/2 ML SDV IV ONE (05:43)
[2019-12-03] MEDS ORDERED: MORPHINE SULFATE 10 MG/ML INJ IV ONE (05:43)
--- NOTE | 2019-12-03 05:49 | ER Document Report ---
ED GI/ - General Chief Complaint: Abdominal Pain Stated Complaint: UPPER RIGHT ABDOMINAL PAIN Time Seen by Provider: 12/03/19 05:20 Primary Care Provider: RADHA SOTO MD [Primary Care Provider] - Follow up tomorrow Notes: Patient is a 24-year-old female that comes emergency department for chief complaint of sharp pain in her right upper abdomen that radiates around to her right mid back. Pain is intermittent since 4 AM. She reports nausea but denies vomiting. She had a normal bowel movement 2 hours ago. She missed dinner. She denies fever/chills, vaginal bleeding or discharge, . She denies any surgeries or daily medications except Nexium. She denies ever having pain like this in the past. TRAVEL OUTSIDE OF THE [place] IN LAST 30 DAYS: No - Related Data Allergies/Adverse Reactions: Penicillins Allergy (Verified 06/14/18 20:14) shellfish derived Allergy (Verified 06/14/18 20:14) Past Medical History - General Information source: Patient - Social History Smoking Status: Never Smoker Frequency of alcohol use: Occasional Drug Abuse: None Lives with: Family Family History: Reviewed & Not Pertinent Renal/ Medical History: Denies: Hx Peritoneal Dialysis GI Medical History: Reports: Hx Gastroesophageal Reflux Disease Surgical Hx: Negative - Immunizations Immunizations up to date: Yes Hx Diphtheria, Pertussis, Tetanus Vaccination: Yes Review of Systems - Review of Systems Constitutional: No symptoms reported EENT: No symptoms reported Cardiovascular: No symptoms reported Respiratory: No symptoms reported Gastrointestinal: See HPI Genitourinary: See HPI Female Genitourinary: No symptoms reported Musculoskeletal: No symptoms reported Skin: No symptoms reported Hematologic/Lymphatic: No symptoms reported Neurological/Psychological: No symptoms reported Physical Exam - Vital signs Vitals: Temp Pulse Resp BP Pulse Ox 98.1 F 86 20 131/70 H 100 12/03/19 05:19 12/03/19 05:19 12/03/19 05:19 12/03/19 05:19 12/03/19 05:19 - Notes Notes: GENERAL: Alert, interacts well. No acute distress. HEAD: Normocephalic, atraumatic. EYES: Pupils equal, round, and reactive to light. Extraocular movements intact. ENT: Oral mucosa moist, tongue midline. Oropharynx unremarkable. Airway patent. NECK: Full range of motion. Supple. Trachea midline. No lymphadenopathy. LUNGS: Clear to auscultation bilaterally, no wheezes, rales, or rhonchi. No respiratory distress. Non-tender chest wall. HEART: Regular rate and rhythm. No murmur ABDOMEN: Patient with epigastric and right upper quadrant tenderness with wincing. Remaining abdomen is soft and benign. Bowel sounds present, abdomen is not rigid or distended. GENITOURINARY: Deferred EXTREMITIES: Moves all 4 extremities spontaneously. No edema, normal radial and dorsalis pedis pulses bilaterally. No cyanosis. BACK: no cervical, thoracic, lumbar midline tenderness. No saddle anesthesia, normal distal neurovascular exam. Moves all extremities in full range of motion. NEUROLOGICAL: Alert and oriented x3. Normal speech. Cranial nerves II through XII grossly intact. Strength 5/5 in all extremities. PSYCH: Normal affect, normal mood. SKIN: Warm, dry, normal turgor. No rashes or lesions noted. Course - Re-evaluation Re-evalutation: CBC shows mild leukocytosis at 13,000, elevation of neutrophils, no bandemia. Chemistry unremarkable except for borderline LFTs, lipase unremarkable, alk phos unremarkable, bilirubin unremarkable. Urinalysis shows mildly elevated specific gravity, otherwise unremarkable. Patient has been given IV fluids. On reevaluation patient appears comfortable. Ultrasound shows questionable mild fatty infiltration of the liver, unremarkable gallbladder without pericholecystic fluid, thickened wall, stones, or common bile duct dilatation. Right kidney is unremarkable. Patient patient's location of pain which is very specific along with intermittent sharp pain I suspect most strongly gallbladder dyskinesis. I discussed patient's ultrasound with her, discussed her work-up, discussed possibilities, treatment, follow-up, and return precautions in detail. Patient states appreciation and agreement. Stable and well-appearing at time of discharge. - Vital Signs Vital signs: Temp Pulse Resp BP Pulse Ox 98.4 F 86 20 131/70 H 100 12/03/19 06:10 12/03/19 05:19 12/03/19 05:19 12/03/19 05:19 12/03/19 05:19 - Laboratory Result Diagrams: 12/03/19 06:10 12/03/19 06:10 Laboratory results interpreted by me: 12/03/19 12/03/19 06:10 06:10 WBC 13.9 H Hgb 11.2 L Hct 33.6 L RDW 16.1 H Absolute Neuts (auto) 9.3 H AST 52 H Discharge - Discharge Clinical Impression: RUQ pain Condition: Stable Disposition: HOME, SELF-CARE Additional Instructions: Your work-up does not show any concerning findings at this time. You have mild fatty infiltration of the liver as discussed. Based on your symptoms, evaluation, work-up I most strongly suspect gallbladder dyskinesis is causing your pain. The follow-up test to evaluate for this is a HIDA scan. Call your primary care for close follow-up and testing. In the meantime I strongly recommend that you avoid any fatty, fried, or greasy foods as this will likely severely increase your symptoms. You have been provided with pain and nausea medication to take if needed. However if pain becomes severe, sharp vomiting, you develop a fever of 100.4 greater, or any other concerning symptoms develop return to the emergency department. Prescriptions: Hydrocodone/Acetaminophen [Storden 5-325 mg Tablet] 1 - 2 tab PO ASDIR PRN #12 tablet PRN Reason: Ondansetron [Zofran Odt 4 mg Tablet] 1 - 2 tab PO Q4H PRN #15 tab.rapdis PRN Reason: For Nausea/Vomiting Forms: Return to Work Referrals: RADHA SOTO MD [Primary Care Provider] - Follow up tomorrow
[2019-12-03 06:26] LABS: ABSOLUTE BASOPHILS # (AUTO) 0.1 10^3/uL (0.0-0.2); ABSOLUTE EOSINOPHILS # (AUTO) 0.2 10^3/uL (0.0-0.6); ABSOLUTE LYMPHOCYTES (AUTO) 3.3 10^3/uL (0.5-4.7); ABSOLUTE NEUT (AUTO) 9.3 10^3/uL (1.7-8.2); BASOPHILS % (AUTO) 0.5 % (0-2); EOSINOPHILS % (AUTO) 1.6 % (0-6); HEMATOCRIT 33.6 % (36.0-47.0); HEMOGLOBIN 11.2 g/dL (12.0-15.5); LYMPHOCYTES % (AUTO) 23.8 % (13-45); MEAN CORPUSCULAR HEMOGLOBIN 28.4 pg (27.0-33.4); MEAN CORPUSCULAR HGB CONC 33.3 g/dL (32.0-36.0); MEAN CORPUSCULAR VOLUME 85 fl (80-97); MONOCYTES % (AUTO) 7.5 % (3-13); PLATELET COUNT 351 10^3/uL (150-450); RED BLOOD COUNT 3.95 10^6/uL (3.72-5.28); RED CELL DISTRIBUTION WIDTH 16.1 % (11.5-14.0); SEGMENTED NEUTROPHILS % (AUTO) 66.6 % (42-78); TOTAL CELLS COUNTED % (AUTO) 100 %; WHITE BLOOD COUNT 13.9 10^3/uL (4.0-10.5)
[2019-12-03 06:30] LABS: APPEARANCE,URINE SLIGHTLY-CLOUDY; BILIRUBIN,URINE NEGATIVE (NEGATIVE); COLOR,URINE YELLOW; GLUCOSE, URINE NEGATIVE (NEGATIVE); KETONES,URINE NEGATIVE (NEGATIVE); LEUKOCYTE ESTERASE,URINE NEGATIVE (NEGATIVE); NITRITE,URINE NEGATIVE (NEGATIVE); PROTEIN,URINE NEGATIVE (NEGATIVE); URINE SPECIFIC GRAVITY 1.027; UROBILINOGEN,URINE NEGATIVE mg/dL (<2.0)
[2019-12-03 06:44] LABS: ALBUMIN 4.5 g/dL (3.5-5.0); ALKALINE PHOSPHATASE 66 U/L (38-126); ANION GAP 10 (5-19); ASPARTATE AMINO TRANSFERASE 52 U/L (14-36); BILIRUBIN,DIRECT 0.1 mg/dL (0.0-0.4); BILIRUBIN,TOTAL 0.5 mg/dL (0.2-1.3); BLOOD UREA NITROGEN 12 mg/dL (7-20); CALCIUM 9.2 mg/dL (8.4-10.2); CARBON DIOXIDE 23 mmol/L (22-30); CHLORIDE 105 mmol/L (98-107); GLUCOSE 89 mg/dL (75-110); POTASSIUM 3.8 mmol/L (3.6-5.0); TOTAL PROTEIN 7.7 g/dL (6.3-8.2)
[2019-12-03] MEDS ORDERED: KETOROLAC TROMETHAMINE INJ/PF 30 MG/1 ML SDV IV ONE (06:46)
--- NOTE | 2019-12-03 06:47 | RADIOLOGY REPORT (SQ) ---
Ultrasound right upper quadrant on 12/03/2019 at 6:17 AM CLINICAL INDICATION: Right upper quadrant and right back pain, nausea COMPARISON: None FINDINGS: Multiple sonographic images are obtained throughout the right upper quadrant, both transverse and sagittal images are obtained. Examination was somewhat limited due to bowel gas and patient body habitus. Visualized pancreas is unremarkable. There is mild increased echogenicity in the liver suggesting mild fatty infiltration. No focal liver lesion is noted. Right kidney shows no hydronephrosis. There are no gallstones, gallbladder wall thickening or pericholecystic fluid. Common duct measures 4 mm which is within normal limits mitigating against obstruction of the biliary tree. IMPRESSION: Probable mild fatty infiltration of the liver, otherwise essentially unremarkable.
[2019-12-03] MEDS ORDERED: HYDROCODONE/ACETAMINOPHEN 5-325 MG (6 TAB/ER DISP) PO PRN (07:30)
[2019-12-03] MEDS ORDERED: ONDANSETRON ODT 4 MG TAB (6 TAB/ER DISP) PO PRN (07:31)
[2019-12-03 07:46] VITALS: BP 101/52
== END 2019-12-03 07:46 | disposition home or self-care (01) ==
LOC: ER 05:04
DX: R10.11 Right upper quadrant pain (principal); R10.816 Epigastric abdominal tenderness; R10.811 Right upper quadrant abdominal tenderness; D72.828 Other elevated white blood cell count; K21.9 Gastro-esophageal reflux disease without esophagitis; Z79.899 Other long term (current) drug therapy; Z88.0 Allergy status to penicillin; Z91.013 Allergy to seafood
CPT/HCPCS: 99284; 96360; 36415; 83690; 85025; 81025; 80053; 81001; 76705; J1885; J2270; J2405; J7030

== ENCOUNTER 2019-12-05 01:33 | Inpatient (IN) | payer MEDICAID ==
[2019-12-05] MEDS ORDERED: FENTANYL CITRATE INJ/PF 100 MCG/2 ML AMPUL IV ONE (02:46)
[2019-12-05] MEDS ORDERED: NORMAL SALINE 1000 ML 1,000 ML IV ONE (02:46)
[2019-12-05] MEDS ORDERED: ONDANSETRON HCL INJ/PF 4 MG/2 ML SDV IV ONE (02:47)
--- NOTE | 2019-12-05 02:48 | ER Document Report ---
ED GI/ - General Chief Complaint: Right upper quadrant pain Stated Complaint: ABDOMINAL PAIN Time Seen by Provider: 12/05/19 02:15 Primary Care Provider: RADHA SOTO MD [Primary Care Provider] - Follow up as needed Mode of Arrival: Ambulatory Information source: Patient Notes: Patient presents with a 10-day history of right upper quadrant pain that radiate s to her shoulders. Patient states she has had nausea vomiting as well. Patient reports vomiting x3 episodes. Patient denies any cough or congestion. Patient denies any urinary symptoms. Patient states that she was seen here 2 days ago and is awaiting to follow-up with her primary doctor to see about having an outpatient HIDA scan performed. Patient denies any fever. Patient states she has not been able to tolerate any oral food or fluids due to the vomiting and pain symptoms. Patient has nausea medicine and pain medication at home that have not been helping. TRAVEL OUTSIDE OF THE [place] IN LAST 30 DAYS: No - HPI Patient complains to provider of: Abdominal pain, Vomiting Onset: Other - 10 days Timing/Duration: Persistent Quality of pain: Sharp, Stabbing Pain Level: 5 Location: RUQ Associated symptoms: Nausea, Vomiting. denies: Diarrhea, Urinary hesitancy, Urinary frequency, Urinary retention, Urinary urgency Exacerbated by: Food Relieved by: Denies Similar symptoms previously: No Recently seen / treated by doctor: Yes - Related Data Allergies/Adverse Reactions: Penicillins Allergy (Verified 06/14/18 20:14) shellfish derived Allergy (Verified 06/14/18 20:14) Past Medical History - General Information source: Patient - Social History Smoking Status: Never Smoker Frequency of alcohol use: Social Drug Abuse: None Occupation: assistant administrator Lives with: Family Family History: Reviewed & Not Pertinent Patient has homicidal ideation: No Renal/ Medical History: Denies: Hx Peritoneal Dialysis GI Medical History: Reports: Hx Gastroesophageal Reflux Disease Surgical Hx: Negative - Immunizations Immunizations up to date: Yes Hx Diphtheria, Pertussis, Tetanus Vaccination: Yes Review of Systems - Review of Systems Constitutional: No symptoms reported. denies: Fever EENT: No symptoms reported Cardiovascular: No symptoms reported. denies: Chest pain Respiratory: No symptoms reported. denies: Cough Gastrointestinal: Abdominal pain, Nausea, Vomiting. denies: Diarrhea Genitourinary: No symptoms reported. denies: Dysuria, Flank pain Female Genitourinary: No symptoms reported. denies: Musculoskeletal: Other - Pain radiates from abdomen to shoulder Skin: No symptoms reported Hematologic/Lymphatic: No symptoms reported Neurological/Psychological: No symptoms reported Physical Exam - Vital signs Vitals: Temp Pulse Resp BP Pulse Ox 98.4 F 86 16 121/59 L 100 12/05/19 01:39 12/05/19 01:39 12/05/19 01:39 12/05/19 01:39 12/05/19 01:39 - General General appearance: Appears well, Alert In distress: None - HEENT Head: Normocephalic, Atraumatic Eyes: Normal Conjunctiva: Normal Nasal: Normal Mouth/Lips: Normal Mucous membranes: Normal Neck: Normal, Supple. No: Lymphadenopathy - Respiratory Respiratory status: No respiratory distress Chest status: Nontender Breath sounds: Normal. No: Rales, Rhonchi, Stridor, Wheezing Chest palpation: Normal - Cardiovascular Rhythm: Regular Heart sounds: S1 appreciated, S2 appreciated - Abdominal Inspection: Morbidly Obese Distension: No distension Bowel sounds: Normal Tenderness: Tender - RUQ Organomegaly: No organomegaly - Back Back: Normal. No: CVA tenderness - Extremities General upper extremity: Normal inspection, Normal strength General lower extremity: Normal inspection, Normal strength - Neurological Neuro grossly intact: Yes Cognition: Normal Domitila Coma Scale Eye Opening: Spontaneous [place] Coma Scale Verbal: Oriented Domitila Coma Scale Motor: Obeys Commands [place] Coma Scale Total: 15 - Psychological Associated symptoms: Normal affect, Normal mood - Skin Skin Temperature: Warm Skin Moisture: Dry Skin Color: Normal Course - Re-evaluation Re-evalutation: 12/05/19 04:20 Patient complains of continued abdominal tenderness and is requesting additional pain medication at this time. 12/05/19 04:30 Ultrasound report reviewed, consulted with surgeon Dr. Arellano regarding patient presentation and patient's increase in LFTs and bilirubin today as compared with ER visit [address] Arellano does agree to come and evaluate patient. 12/05/19 05:13 Patient states that she is allergic to penicillin but is uncertain of the specific symptoms with allergy. Patient states she has taken cephalosporins as well as amoxicillin in the past without adverse reaction. Patient states that Dr. Arellano informed her that the a.m. surgeon will be by to evaluate her sometime after 7 AM. - Vital Signs Vital signs: Temp Pulse Resp BP Pulse Ox 98.2 F 88 18 127/66 H 100 12/05/19 04:26 12/05/19 04:26 12/05/19 04:26 12/05/19 04:26 12/05/19 04:26 - Laboratory Result Diagrams: 12/05/19 03:00 12/05/19 03:00 Laboratory results interpreted by me: 12/05/19 12/05/19 03:00 03:00 Hct 35.6 L RDW 16.2 H Sodium 136.6 L Total Bilirubin 2.4 H Direct Bilirubin 1.7 H AST 88 H ALT 187 H Alkaline Phosphatase 146 H Labs- Entire Visit 12/05/19 12/05/19 12/05/19 03:00 03:00 03:00 WBC 9.6 RBC 4.26 Hgb 12.3 Hct 35.6 L MCV 84 MCH 28.9 MCHC 34.5 RDW 16.2 H Plt Count 359 Lymph % (Auto) 17.4 [place] % (Auto) 9.1 Eos % (Auto) 2.1 Baso % (Auto) 0.4 Absolute Neuts (auto) 6.8 Absolute Lymphs (auto) 1.7 Absolute Monos (auto) 0.9 Absolute Eos (auto) 0.2 Absolute Basos (auto) 0.0 Seg Neutrophils % 71.0 Sodium 136.6 L Potassium 4.0 Chloride 103 Carbon Dioxide 24 Anion Gap 10 BUN 7 Creatinine 0.61 Est GFR ( Amer) > 60 Est GFR (MDRD) Non-Af > 60 Glucose 94 Calcium 9.3 Total Bilirubin 2.4 H Direct Bilirubin 1.7 H Neonat Total Bilirubin Not Reportable Neonat Direct Bilirubin Not Reportable Neonat Indirect Bili Not Reportable AST 88 H ALT 187 H Alkaline Phosphatase 146 H Total Protein 7.7 Albumin 4.4 Lipase 121.6 Serum HCG, Qual NEGATIVE Urine Color Urine Appearance Urine pH Ur Specific [place] Urine Protein Urine Glucose (UA) Urine Ketones Urine Blood Urine Nitrite Urine Bilirubin Urine Urobilinogen Ur Leukocyte Esterase Urine WBC (Auto) Urine RBC (Auto) Urine Bacteria (Auto) Squamous Epi Cells Auto Urine Mucus (Auto) Urine Ascorbic Acid 12/05/19 03:00 WBC RBC Hgb Hct MCV MCH MCHC RDW Plt Count Lymph % (Auto) [place] % (Auto) Eos % (Auto) Baso % (Auto) Absolute Neuts (auto) Absolute Lymphs (auto) Absolute Monos (auto) Absolute Eos (auto) Absolute Basos (auto) Seg Neutrophils % Sodium Potassium Chloride Carbon Dioxide Anion Gap BUN Creatinine Est GFR ( Amer) Est GFR (MDRD) Non-Af Glucose Calcium Total Bilirubin Direct Bilirubin Neonat Total Bilirubin Neonat Direct Bilirubin Neonat Indirect Bili AST ALT Alkaline Phosphatase Total Protein Albumin Lipase Serum HCG, Qual Urine Color JANE Urine Appearance CLEAR Urine pH 6.0 Ur Specific [place] 1.010 Urine Protein NEGATIVE Urine Glucose (UA) NEGATIVE Urine Ketones NEGATIVE Urine Blood NEGATIVE Urine Nitrite NEGATIVE Urine Bilirubin NEGATIVE Urine Urobilinogen NEGATIVE Ur Leukocyte Esterase NEGATIVE Urine WBC (Auto) 2 Urine RBC (Auto) 1 Urine Bacteria (Auto) TRACE Squamous Epi Cells Auto 3 Urine Mucus (Auto) RARE Urine Ascorbic Acid NEGATIVE Reviewed laboratory studies from 2 days ago - Diagnostic Test Radiology reviewed: Reports reviewed Discharge - Discharge Clinical Impression: RUQ pain, Cholecystitis Nausea & vomiting Qualifiers: Vomiting type: unspecified Vomiting Intractability: unspecified Qualified Code(s): R11.2 - Nausea with vomiting, unspecified Condition: Stable Disposition: ADMITTED INPATIENT Admitting Provider: Surgicalist Unit Admitted: Surgical Floor Referrals: RADHA SOTO MD [Primary Care Provider] - Follow up as needed
[2019-12-05 03:24] LABS: ABSOLUTE EOSINOPHILS # (AUTO) 0.2 10^3/uL (0.0-0.6); ABSOLUTE LYMPHOCYTES (AUTO) 1.7 10^3/uL (0.5-4.7); ABSOLUTE MONOCYTES (AUTO) 0.9 10^3/uL (0.1-1.4); ABSOLUTE NEUT (AUTO) 6.8 10^3/uL (1.7-8.2); BASOPHILS % (AUTO) 0.4 % (0-2); EOSINOPHILS % (AUTO) 2.1 % (0-6); HEMATOCRIT 35.6 % (36.0-47.0); HEMOGLOBIN 12.3 g/dL (12.0-15.5); LYMPHOCYTES % (AUTO) 17.4 % (13-45); MEAN CORPUSCULAR HEMOGLOBIN 28.9 pg (27.0-33.4); MEAN CORPUSCULAR HGB CONC 34.5 g/dL (32.0-36.0); MEAN CORPUSCULAR VOLUME 84 fl (80-97); MONOCYTES % (AUTO) 9.1 % (3-13); PLATELET COUNT 359 10^3/uL (150-450); RED BLOOD COUNT 4.26 10^6/uL (3.72-5.28); RED CELL DISTRIBUTION WIDTH 16.2 % (11.5-14.0); TOTAL CELLS COUNTED % (AUTO) 100 %; WHITE BLOOD COUNT 9.6 10^3/uL (4.0-10.5)
[2019-12-05 03:34] LABS: ALBUMIN 4.4 g/dL (3.5-5.0); ALKALINE PHOSPHATASE 146 U/L (38-126); ANION GAP 10 (5-19); ASPARTATE AMINO TRANSFERASE 88 U/L (14-36); BILIRUBIN,DIRECT 1.7 mg/dL (0.0-0.4); BILIRUBIN,TOTAL 2.4 mg/dL (0.2-1.3); BLOOD UREA NITROGEN 7 mg/dL (7-20); CALCIUM 9.3 mg/dL (8.4-10.2); CARBON DIOXIDE 24 mmol/L (22-30); CHLORIDE 103 mmol/L (98-107); GLUCOSE 94 mg/dL (75-110); TOTAL PROTEIN 7.7 g/dL (6.3-8.2)
[2019-12-05 03:43] LABS: APPEARANCE,URINE CLEAR; BILIRUBIN,URINE NEGATIVE (NEGATIVE); COLOR,URINE AMBER; GLUCOSE, URINE NEGATIVE (NEGATIVE); KETONES,URINE NEGATIVE (NEGATIVE); LEUKOCYTE ESTERASE,URINE NEGATIVE (NEGATIVE); NITRITE,URINE NEGATIVE (NEGATIVE); PROTEIN,URINE NEGATIVE (NEGATIVE); UROBILINOGEN,URINE NEGATIVE mg/dL (<2.0)
--- NOTE | 2019-12-05 04:14 | RADIOLOGY REPORT (SQ) ---
EXAM DESCRIPTION: US ABDOMEN LIMITED COMPLETED DATE/TME: 12/05/2019 02:49 CLINICAL HISTORY: 24 years Female, RUQ pain Comparison: None. LIMITATIONS: Bowel gas artifact. FINDINGS: Gallbladder sludge. Poorly defined sludge or echogenic foci measuring up to 1.1 cm may indicate gallbladder sludge, adherent stones, and/or polyp, 0.3 cm gallbladder wall thickness, negative sonographic Bae's test, moderate hepatic steatosis, a 0.4-cm diameter common bile duct, no intrahepatic ductal dilation, hepatopetal patent flow of the portal vein, 10.6-cm right kidney, obscured pancreas, visualized vasculature/abdominal aorta, and no significant ascites appear otherwise unremarkable. IMPRESSION: 1. No acute findings. 2. Poorly defined sludge or echogenic foci measuring up to 1.1 cm may indicate gallbladder sludge, adherent stones, and/or polyp. Negative sonographic Bae's test. Recommend three month ultrasound surveillance. 3. Moderate hepatic steatosis. 4. Limitation.
[2019-12-05] MEDS ORDERED: MORPHINE SULFATE 10 MG/ML INJ IV ONE (04:20)
[2019-12-05] MEDS ORDERED: METRONIDAZOLE 500 MG/NS RTU 500 MG/100 ML RTUPB IV ONE (05:11)
[2019-12-05] MEDS ORDERED: CEFTRIAXONE 2 GM/D5W RTU 2 GM/50 ML RTUPB IV ONE (05:12)
[2019-12-05] MEDS ORDERED: LEVOFLOXACIN 500 MG/D5W RTU 500 MG/100 ML RTUPB IV ONE (07:00)
[2019-12-05] MEDS: NORMAL SALINE 1000 ML 1,000 ML IV PRN ×3 (08:34→23:40)
[2019-12-05] MEDS ORDERED: LIDOCAINE 2% INJ-PF (20 MG/ML) 10 ML AMPUL ONE (09:36)
[2019-12-05] MEDS ORDERED: HYDROMORPHONE HCL INJ/PF 2 MG/ML AMPULE ONE (09:37)
[2019-12-05] MEDS ORDERED: FENTANYL CITRATE INJ/PF 100 MCG/2 ML AMPUL ONE (09:37)
[2019-12-05] MEDS ORDERED: DEXMEDETOMIDINE INJ 80 MCG/20 ML VIAL IV ONE (09:37)
[2019-12-05] MEDS ORDERED: MIDAZOLAM 2 MG/2 ML INJ ONE (09:37)
[2019-12-05] MEDS ORDERED: ONDANSETRON HCL INJ/PF 4 MG/2 ML SDV ONE (09:37)
[2019-12-05] MEDS ORDERED: DEXAMETHASONE SOD PHOSPHATE INJ 4 MG/1 ML VIAL ONE (09:37)
[2019-12-05] MEDS ORDERED: PROPOFOL INJ 200 MG/20 ML VIAL IV ONE (09:38)
[2019-12-05] MEDS ORDERED: PHENYLEPHRINE HCL INJ/PF 10 MG/1 ML SDV ONE (10:21)
[2019-12-05] MEDS ORDERED: GLYCOPYRROLATE 1 MG/5 ML VIAL ONE (10:21)
[2019-12-05] MEDS ORDERED: NEOSTIGMINE METHYLSULFATE 10 MG/10 ML VIAL ONE (10:21)
[2019-12-05] MEDS ORDERED: KETOROLAC TROMETHAMINE 60 MG/2 ML SDV ONE (10:21)
[2019-12-05] MEDS ORDERED: DIPHENHYDRAMINE HCL 50 MG/ML VIAL IV PRN (10:42)
[2019-12-05] MEDS ORDERED: PROMETHAZINE HCL INJ 25 MG/1 ML VIAL IV PRN ×2 (10:42)
[2019-12-05] MEDS ORDERED: FENTANYL CITRATE INJ/PF 100 MCG/2 ML AMPUL IV PRN ×3 (10:42)
[2019-12-05] MEDS ORDERED: MORPHINE SULFATE 10 MG/ML INJ IV PRN (10:42)
[2019-12-05] MEDS ORDERED: MEPERIDINE HCL/PF INJ 25 MG/1 ML DISP.SYRIN IV PRN (10:42)
[2019-12-05] MEDS ORDERED: OXYCODONE-ACETAMINOPHEN 5-325 MG TABLET PO PRN ×2 (10:42)
[2019-12-05] MEDS: BUPIVACAINE HCL 0.25 % INJ/PF (2.5 MG/1 ML) 30 ML VIAL ONE ×2 (10:50→11:58)
--- NOTE | 2019-12-05 12:09 | PDOC H&P ---
History of Present Illness Admission Date/PCP: 12/05/19 05:26 RADHA SOTO MD History of Present Illness: TRACY LAN is a 24 year old femalePatient presents with a 10-day history of right upper quadrant pain that radiates to her shoulders. Patient states she has had nausea vomiting as well. Patient reports vomiting x3 episodes. Patient denies any cough or congestion. Patient denies any urinary symptoms. Patient states that she was seen here 2 days ago and is awaiting to follow-up with her primary doctor to see about having an outpatient HIDA scan performed. Patient denies any fever. Patient states she has not been able to tolerate any oral food or fluids due to the vomiting and pain symptoms. Patient has nausea medicine and pain medication at home that have not been helping Past Medical History GI Medical History: Reports: Gastroesophageal Reflux Disease Past Surgical History Past Surgical History: Reports: None Social History Lives with: Family Smoking Status: Never Smoker Frequency of Alcohol Use: None Hx Recreational Drug Use: No Drugs: None Hx Prescription Drug Abuse: No - Advance Directive Resuscitation Status: Full Code Family History Family History: Reviewed & Not Pertinent Parental Family History Reviewed: No Children Family History Reviewed: NA Sibling(s) Family History Reviewed.: NA Medication/Allergy Home Medications: No Home Medications 12/05/19 Allergies/Adverse Reactions: Penicillins Allergy (Verified 06/14/18 20:14) shellfish derived Allergy (Verified 06/14/18 20:14) Review of Systems Constitutional: PRESENT: fatigue Eyes: ABSENT: as per HPI, visual disturbances, other Ears: ABSENT: as per HPI, hearing changes, other Breasts: ABSENT: as per HPI, other Cardiovascular: ABSENT: as per HPI, chest pain, dyspnea on exertion, edema, orthropnea, palpitations, other Respiratory: ABSENT: as per HPI, cough, dyspnea, hemoptysis, sputum, other Gastrointestinal: PRESENT: abdominal pain Musculoskeletal: ABSENT: as per HPI, back pain, deformity, joint swelling, muscle weakness, other Integumentary: ABSENT: as per HPI, diaphoresis, erythema, lesions, pruritus, rash, wounds, other Neurological: ABSENT: as per HPI, abnormal gait, abnormal movements, abnormal speech, confusion, convulsions, dizziness, focal weakness, frequent falls, lack of coordination, memory loss, numbness, paresthesias, restless legs, syncope, tingling, tremor(s), vertigo, weakness, other Psychiatric: ABSENT: as per HPI, anxiety, depression, hallucinations, homidical ideation, suicidal ideation, other Endocrine: ABSENT: as per HPI, cold intolerance, flushing, heat intolerance, menstrual abnormalities, polydipsia, polyphagia, polyuria, other Hematologic/Lymphatic: ABSENT: as per HPI, easy bleeding, easy bruising, lymphadenopathy, other Allergic/Immunologic: ABSENT: as per HPI, seasonal rhinorrhea, other Physical Exam Vital Signs: Temp Pulse Resp BP Pulse Ox 98.2 F 63 21 H 117/61 100 12/05/19 08:00 12/05/19 08:00 12/05/19 08:00 12/05/19 08:00 12/05/19 08:00 Intake & Output 12/04/19 12/05/19 12/06/19 06:59 06:59 06:59 Intake Total 1050 460 Output Total 360 Balance 1050 100 Weight 89.6 kg General appearance: PRESENT: mild distress Head exam: PRESENT: normocephalic Eye exam: PRESENT: EOMI Ear exam: PRESENT: normal external ear exam Mouth exam: PRESENT: moist Neck exam: PRESENT: full ROM Respiratory exam: PRESENT: clear to auscultation seema Cardiovascular exam: PRESENT: RRR Pulses: PRESENT: +2 pedal pulses bilateral Breast: PRESENT: Normal GI/Abdominal exam: PRESENT: Bae's sign Rectal exam: PRESENT: deferred Extremities exam: PRESENT: full ROM Musculoskeletal exam: PRESENT: full ROM Neurological exam: PRESENT: alert, awake, oriented to person, oriented to place Psychiatric exam: PRESENT: appropriate affect Skin exam: PRESENT: dry Results Laboratory Results: 12/05/19 03:00 12/05/19 03:00 12/05/19 12/05/19 12/05/19 03:00 03:00 03:00 WBC 9.6 RBC 4.26 Hgb 12.3 Hct 35.6 L MCV 84 MCH 28.9 MCHC 34.5 RDW 16.2 H Plt Count 359 Seg Neutrophils % 71.0 Sodium 136.6 L Potassium 4.0 Chloride 103 Carbon Dioxide 24 Anion Gap 10 BUN 7 Creatinine 0.61 Est GFR ( Amer) > 60 Glucose 94 Calcium 9.3 Total Bilirubin 2.4 H AST 88 H Alkaline Phosphatase 146 H Total Protein 7.7 Albumin 4.4 Lipase 121.6 Serum HCG, Qual NEGATIVE Urine Color Urine Appearance Urine pH Ur Specific [place] Urine Protein Urine Glucose (UA) Urine Ketones Urine Blood Urine Nitrite Ur Leukocyte Esterase Urine WBC (Auto) Urine RBC (Auto) 12/05/19 03:00 WBC RBC Hgb Hct MCV MCH MCHC RDW Plt Count Seg Neutrophils % Sodium Potassium Chloride Carbon Dioxide Anion Gap BUN Creatinine Est GFR ( Amer) Glucose Calcium Total Bilirubin AST Alkaline Phosphatase Total Protein Albumin Lipase Serum HCG, Qual Urine Color JANE Urine Appearance CLEAR Urine pH 6.0 Ur Specific [place] 1.010 Urine Protein NEGATIVE Urine Glucose (UA) NEGATIVE Urine Ketones NEGATIVE Urine Blood NEGATIVE Urine Nitrite NEGATIVE Ur Leukocyte Esterase NEGATIVE Urine WBC (Auto) 2 Urine RBC (Auto) 1 Impressions: Abdomen Ultrasound 12/05/19 02:49 IMPRESSION: 1. No acute findings. 2. Poorly defined sludge or echogenic foci measuring up to 1.1 cm may indicate gallbladder sludge, adherent stones, and/or polyp. Negative sonographic Bae's test. Recommend three month ultrasound surveillance. 3. Moderate hepatic steatosis. 4. Limitation. Assessment & Plan - Plan Summary Plan Summary: acute cholecystitis, possible choledocholithiasis plan to or for timothy gray notified Dr Bradley
--- NOTE | 2019-12-05 12:14 | Operative Report ---
Nonrecallable Operative Report DATE OF SURGERY: 12/05/19 PREOPERATIVE DIAGNOSIS: acute cholecystitsi possible choledocholithiasis POSTOPERATIVE DIAGNOSIS: acute cholecystitis and choledocholithiasis OPERATION: laparoscopic cholecystectomy with introperative cholangiogram SURGEON: EVELIN GALLARDO ANESTHESIA: GA TISSUE REMOVED OR ALTERED: gallbladder COMPLICATIONS: none ESTIMATED BLOOD LOSS: 25cc INTRAOPERATIVE FINDINGS: common duct stone PROCEDURE: After obtaining informed consent, the patient was taken to the operating room. General Anesthesia was induced; the arms were extended, and the abdomen was exposed, and prepped and draped in a sterile fashion. Instrumentation was set up for laparoscopic cholecystectomy. Surgical plan and surgical timeout were conducted. A vertical incision was made above the umbilicus, and a verres needle was inserted uneventfully into the peritoneal cavity. Pneumoperitoneum was established. The verres needle was removed and a 10 trocar was inserted and a 10 laparoscope was inserted. Visualization of the peritoneal cavity confirmed safe uneventful entry. Under direct visualization 3 additional 5 mm ports were established, one in the subxiphoid position and second in the subcostal position. Visualization of the hepatobiliary anatomy revealed no anatomic variations. A grasper was placed on the fundus of the gallbladder and the gallbladder is elevated over the right surface of the liver; a second grasper was used to grasp the infundibulum of the gallbladder. The neck of the gallbladder and junction with the cystic duct was dissected out. The Cystic artery was in its usual location medial and cephalad to the cystic duct. The cystic artery was surrounded with a right angle clamp, clipped twice proximally and divided with laparoscopic scissors. We now opened the triangle of [place] by dividing the peritoneal reflection on both the medial and lateral sides of the cystic duct infundibular junction. The critical view was obtained. We now milked the cystic duct of any possible stones, proximal cystic duct clip was placed. And a cystic ductotomy was performed. Cholangiogram catheter was then passed into the cystic duct the balloon was inflated and intraoperative cholangiogram revealed obstruction of the distal common bile duct with good flow into both the right and left hepatic ducts. The balloon on the cholangiogram catheter was taken down and and multiple attempts were performed to try to pass the cholangiogram catheter passed the stone and milked back however we were able to do that. We then therefore remove the cholangiogram catheter divided the cystic duct just below the proximal clip and placed an Endoloop on the stump. The gallbladder was now removed from the undersurface of the liver using hook cautery dissection. Graspers were repositioned and the gallbladder was removed uneventfully from the abdominal cavity through the super umbilical port site incision. The specimen was examined, then passed off to pathology for permanent analysis. We returned to the peritoneal cavity check for bleeding, and evidence of bile leak, and there was none. We Confirmed satisfactory placement of clips on cystic duct and cystic artery were secured . At this point we felt the operation was complete. The subcutaneous tissue was then anesthetized with quarter percent Marcaine Sponge and needle counts are correct. All ports removed under direct visualization pneumoperitoneum evacuated, and 5 mm port wounds closed with 3-0 Vicryl suture, benzoin and Steri-Strips. The patient was extubated, and taken to the recovery room in stable condition. The case was then discussed with Dr. Evans from GI who will see the patient for possible ERCP. Sponge needle counts correct x2 estimated blood loss 25 cc.
--- NOTE | 2019-12-05 12:30 | RADIOLOGY REPORT (SQ) ---
EXAM DESCRIPTION: CHOLANGIOGRAM OPERATIVE IMAGES COMPLETED DATE/TIME: 12/05/2019 12:08 pm REASON FOR STUDY: CHOLANGIOGRAM IN OR COMPARISON: None. FLUOROSCOPY TIME: 2 minutes 8 images saved to PACS. TECHNIQUE: 8 images were obtained from an intraoperative cholangiogram. LIMITATIONS: None. FINDINGS: Several images with filling defect distally. Appears to of resolved on the last image. P roximal loose since the seen only on 1 image. IMPRESSION: INTRAOPERATIVE CHOLANGIOGRAM. COMMENT: Quality ID 145: Final reports for procedures using fluoroscopy that document radiation exp osure indices, or exposure time and number of fluorographic images (if radiation exposure indices are not available) TECHNICAL DOCUMENTATION: JOB ID: [id number] [employer]- All Rights Reserved Reading location - IP/workstation name: [email or web address]
[2019-12-05] MEDS ORDERED: PHENOL/SODIUM PHENOLATE 100 SPRAY/177 ML BOTTLE PO PRN (16:00)
[2019-12-05] MEDS: MORPHINE SULFATE 10 MG/ML INJ IV PRN (23:40)
[2019-12-06 06:11] LABS: ABSOLUTE LYMPHOCYTES (AUTO) 1.3 10^3/uL (0.5-4.7); ABSOLUTE NEUT (AUTO) 9.5 10^3/uL (1.7-8.2); BASOPHILS % (AUTO) 0.2 % (0-2); EOSINOPHILS % (AUTO) 0.1 % (0-6); HEMATOCRIT 30.9 % (36.0-47.0); HEMOGLOBIN 10.3 g/dL (12.0-15.5); LYMPHOCYTES % (AUTO) 10.8 % (13-45); MEAN CORPUSCULAR HEMOGLOBIN 27.8 pg (27.0-33.4); MEAN CORPUSCULAR HGB CONC 33.3 g/dL (32.0-36.0); MEAN CORPUSCULAR VOLUME 84 fl (80-97); MONOCYTES % (AUTO) 8.1 % (3-13); PLATELET COUNT 307 10^3/uL (150-450); RED CELL DISTRIBUTION WIDTH 16.1 % (11.5-14.0); SEGMENTED NEUTROPHILS % (AUTO) 80.8 % (42-78); TOTAL CELLS COUNTED % (AUTO) 100 %; WHITE BLOOD COUNT 11.8 10^3/uL (4.0-10.5)
[2019-12-06 06:53] LABS: ALBUMIN 3.4 g/dL (3.5-5.0); ALKALINE PHOSPHATASE 130 U/L (38-126); ANION GAP 9 (5-19); ASPARTATE AMINO TRANSFERASE 103 U/L (14-36); BILIRUBIN,TOTAL 2.7 mg/dL (0.2-1.3); BLOOD UREA NITROGEN 5 mg/dL (7-20); CALCIUM 8.8 mg/dL (8.4-10.2); CARBON DIOXIDE 22 mmol/L (22-30); CHLORIDE 105 mmol/L (98-107); GLUCOSE 91 mg/dL (75-110); POTASSIUM 4.2 mmol/L (3.6-5.0); TOTAL PROTEIN 6.3 g/dL (6.3-8.2)
[2019-12-06] MEDS: MORPHINE SULFATE 10 MG/ML INJ IV PRN ×2 (09:33→23:39)
[2019-12-06] MEDS: LEVOFLOXACIN 500 MG/D5W RTU 500 MG/100 ML RTUPB IV SCH (09:34)
[2019-12-06] MEDS ORDERED: SUCCINYLCHOLINE CHLORIDE INJ 200 MG/10 ML VIAL ONE (10:23)
--- NOTE | 2019-12-06 11:46 | PDOC PROGRESS REPORT ---
Subjective Progress Note for:: 12/06/19 Subjective:: Feels okay less right upper quadrant abdominal pain Reason For Visit: CHOLECYSTICIS WITH CHOLEDOCHOLITHIASIS Physical Exam Vital Signs: Temp Pulse Resp BP Pulse Ox 98.1 F 80 16 108/58 L 97 12/06/19 11:07 12/06/19 11:07 12/06/19 11:07 12/06/19 11:07 12/06/19 11:07 Intake & Output 12/05/19 12/06/19 12/07/19 06:59 06:59 06:59 Intake Total 1050 3926 Output Total 2320 200 Balance 1050 1606 -200 Weight 89.6 kg 96.5 kg General appearance: PRESENT: no acute distress Head exam: PRESENT: normocephalic Eye exam: PRESENT: EOMI Ear exam: PRESENT: normal external ear exam Mouth exam: PRESENT: moist Neck exam: PRESENT: full ROM Respiratory exam: PRESENT: clear to auscultation seema Cardiovascular exam: PRESENT: RRR Pulses: PRESENT: normal radial pulses, normal femoral pulses Breast: PRESENT: Normal GI/Abdominal exam: PRESENT: soft Rectal exam: PRESENT: deferred Extremities exam: PRESENT: full ROM Musculoskeletal exam: PRESENT: full ROM Neurological exam: PRESENT: alert, awake, oriented to person, oriented to place Skin exam: PRESENT: dry Results Laboratory Results: 12/06/19 05:38 12/06/19 05:38 12/06/19 12/06/19 05:38 05:38 WBC 11.8 H RBC 3.70 L Hgb 10.3 L Hct 30.9 L MCV 84 MCH 27.8 MCHC 33.3 RDW 16.1 H Plt Count 307 Seg Neutrophils % 80.8 H Sodium 135.9 L Potassium 4.2 Chloride 105 Carbon Dioxide 22 Anion Gap 9 BUN 5 L Creatinine 0.50 L Est GFR ( Amer) > 60 Glucose 91 Calcium 8.8 Total Bilirubin 2.7 H AST 103 H Alkaline Phosphatase 130 H Total Protein 6.3 Albumin 3.4 L Impressions: Cholangiogram 12/05/19 00:00 IMPRESSION: INTRAOPERATIVE CHOLANGIOGRAM. Abdomen Ultrasound 12/05/19 02:49 IMPRESSION: 1. No acute findings. 2. Poorly defined sludge or echogenic foci measuring up to 1.1 cm may indicate gallbladder sludge, adherent stones, and/or polyp. Negative sonographic Bae's test. Recommend three month ultrasound surveillance. 3. Moderate hepatic steatosis. 4. Limitation. Assessment & Plan - Plan Summary Plan Summary: Patient status post laparoscopic cholecystectomy and intraoperative cholangiog mac yesterday. There is a retained common bile duct stone. This morning her liver function studies are slightly elevated with rising bilirubin. Dr. Evans plans on a ERCP later today.
[2019-12-06] MEDS ORDERED: ONDANSETRON HCL INJ/PF 4 MG/2 ML SDV ONE (15:38)
[2019-12-06] MEDS ORDERED: FENTANYL CITRATE INJ/PF 100 MCG/2 ML AMPUL ONE (15:38)
[2019-12-06] MEDS ORDERED: MIDAZOLAM 2 MG/2 ML INJ ONE (15:38)
[2019-12-06] MEDS ORDERED: DEXAMETHASONE SOD PHOSPHATE INJ 4 MG/1 ML VIAL ONE (15:38)
[2019-12-06] MEDS ORDERED: PROPOFOL INJ 200 MG/20 ML VIAL IV ONE (15:38)
--- NOTE | 2019-12-06 16:35 | PDOC CONSULTATION ---
Consultation Consult Date: 12/05/19 Provider Consulted: ADAM BOURNE History of Present Illness Admission Date/PCP: 12/05/19 05:26 RADHA SOTO MD History of Present Illness: TRACY LAN is a 24 year old femalePatient who was admitted 2 days ago with abdominal pain, gallstones and abnormal LFTs. Her bilirubin was 2.4 on admission with a lipase of 121. She had a cholecystectomy on 12/05/2019 consistent with choledocholithiasis. She has been having recurrent abdominal pain since she had her baby a year ago but is got worse over the last week. Her ultrasound showed no dilated ducts but she had fatty liver and s ludge/gallstones. Past Medical History GI Medical History: Reports: Gastroesophageal Reflux Disease Psychiatric Medical History: Reports: Depression Past Surgical History Past Surgical History: Reports: None Social History Lives with: Family Smoking Status: Never Smoker Electronic Cigarette use?: No Frequency of Alcohol Use: None Hx Recreational Drug Use: No Drugs: None Hx Prescription Drug Abuse: No - Advance Directive Resuscitation Status: Full Code Family History Family History: Reviewed & Not Pertinent Parental Family History Reviewed: No Children Family History Reviewed: NA Sibling(s) Family History Reviewed.: NA Medication/Allergy Home Medications: No Home Medications 12/05/19 Allergies/Adverse Reactions: Penicillins Allergy (Verified 06/14/18 20:14) shellfish derived Allergy (Verified 06/14/18 20:14) Review of Systems All systems: reviewed and no additional remarkable complaints except as stated Physical Exam Vital Signs: Temp Pulse Resp BP Pulse Ox 98.1 F 80 16 108/58 L 97 12/06/19 11:07 12/06/19 11:07 12/06/19 11:07 12/06/19 11:07 12/06/19 11:07 Intake & Output 12/05/19 12/06/19 12/07/19 06:59 06:59 06:59 Intake Total 1050 3926 100 Output Total 2320 200 Balance 1050 1606 -100 Weight 89.6 kg 96.5 kg Exam: General: Patient is alert and looks well. HEENT: There is no pallor or jaundice. PERRLA. Oropharynx normal Respiratory: No chest deformity. No respiratory distress. Chest wall palpitation was unremarkable. Breath sounds were normal Cardiovascular: Heart sounds 1 and 2 normal with no murmurs. Abdominal: Not distended. Soft and nontender. Liver and spleen not palpable. No ascites demonstrated. Bowel sounds active. Rectal examination was deferred. Extremities: No edema Neurological: Alert and oriented x4. Grossly nonfocal. Normal speech Skin: No significant rash Psychological: Normal affect Results Laboratory Results: 12/06/19 05:38 12/06/19 05:38 12/06/19 05 05:38 05:38 WBC 11.8 H RBC 3.70 L Hgb 10.3 L Hct 30.9 L MCV 84 MCH 27.8 MCHC 33.3 RDW 16.1 H Plt Count 307 Seg Neutrophils % 80.8 H Sodium 135.9 L Potassium 4.2 Chloride 105 Carbon Dioxide 22 Anion Gap 9 BUN 5 L Creatinine 0.50 L Est GFR ( Amer) > 60 Glucose 91 Calcium 8.8 Total Bilirubin 2.7 H AST 103 H Alkaline Phosphatase 130 H Total Protein 6.3 Albumin 3.4 L Impressions: Cholangiogram 12/05/19 00:00 IMPRESSION: INTRAOPERATIVE CHOLANGIOGRAM. Abdomen Ultrasound 12/05/19 02:49 IMPRESSION: 1. No acute findings. 2. Poorly defined sludge or echogenic foci measuring up to 1.1 cm may indicate gallbladder sludge, adherent stones, and/or polyp. Negative sonographic Bae's test. Recommend three month ultrasound surveillance. 3. Moderate hepatic steatosis. 4. Limitation. Assessment & Plan - Diagnosis (1) Choledocholithiasis Is this a current diagnosis for this admission?: Yes Plan: Intraoperative cholangiogram is consistent with choledocholithiasis. The need for an ERCP including the risks and benefits were explained to the patient and she is in agreement. (2) Abnormal findings on imaging of biliary tract Is this a current diagnosis for this admission?: Yes (3) Abnormal liver function Is this a current diagnosis for this admission?: Yes
--- NOTE | 2019-12-06 16:36 | Operative Report ---
Operative Report DATE OF SURGERY: 12/06/19 Operative Report: Pre-op diagnosis: Gallstones and jaundice with abnormal intraoperative cholangiogram Post-op diagnosis: Common bile duct stone Surgery: ERCP with sphincterotomy and balloon stone extraction Medications: As per anesthesia Tissue removed: None Procedure: After informed consent obtained from patient, patient was placed under general anesthesia. The ERCP endoscope was then inserted into the esophagus blindly and advanced into the stomach. The duodenum was entered and the ampulla was identified. Using the triple-lumen sphincterotomy catheter the common bile duct was freely cannulated. A cholangiogram was obtained . A good sized sphincterotomy was then performed using the endocut mode. The catheter was removed over the guidewire before a 9-12 mm balloon catheter was inserted. The balloon was inflated to 12 mm in the proximal common bile duct and pulled down the duct. The duct was swept two more times. A balloon occlusion cholangiogram was normal. Patient tolerated procedure well. Findings Common bile duct: Small yellow stone was extracted. Intrahepatic ducts: Normal Pancreatic duct: Not cannulated Plan: Follow liver function tests OPERATION: .
[2019-12-06] MEDS ORDERED: MEPERIDINE HCL/PF INJ 25 MG/1 ML DISP.SYRIN IV PRN (16:42)
[2019-12-06] MEDS ORDERED: FENTANYL CITRATE INJ/PF 100 MCG/2 ML AMPUL IV PRN ×3 (16:42)
[2019-12-06] MEDS ORDERED: PROMETHAZINE HCL INJ 25 MG/1 ML VIAL IV PRN (16:42)
[2019-12-06] MEDS ORDERED: MORPHINE SULFATE 10 MG/ML INJ IV PRN (16:42)
[2019-12-06] MEDS ORDERED: DIPHENHYDRAMINE HCL 50 MG/ML VIAL IV PRN (16:42)
--- NOTE | 2019-12-06 17:27 | RADIOLOGY REPORT (SQ) ---
EXAM DESCRIPTION: ENDO CATH BILI/PANCREATIC; NO CHG FLUORO IMAGES COMPLETED DATE/TIME: 12/06/2019 5:13 pm REASON FOR STUDY: ERCP COMPARISON: None. FLUOROSCOPY TIME: 2.4 minutes 11 images saved to PACS. TECHNIQUE: Intra-operative images acquired during surgical procedure to evaluate progress. NUMBER OF IMAGES: 11 LIMITATIONS: None. FINDINGS: Fluoroscopic images from ERCP. There is opacification of the bile ducts and cystic duct r emnant. IMPRESSION: IMAGE(S) OBTAINED DURING PROCEDURE. COMMENT: Quality ID 145: Final reports for procedures using fluoroscopy that document radiation exp osure indices, or exposure time and number of fluorographic images (if radiation exposure indices are not available) Please consult full operative report of the attending physician for description of the procedure. TECHNICAL DOCUMENTATION: JOB ID: [id number] 2010 [employer]- All Rights Reserved Reading location - IP/workstation name: [email or web address] [email or web address]
--- NOTE | 2019-12-06 17:27 | RADIOLOGY REPORT (SQ) ---
EXAM DESCRIPTION: ENDO CATH BILI/PANCREATIC; NO CHG FLUORO IMAGES COMPLETED DATE/TIME: 12/06/2019 5:13 pm REASON FOR STUDY: ERCP COMPARISON: None. FLUOROSCOPY TIME: 2.4 minutes 11 images saved to PACS. TECHNIQUE: Intra-operative images acquired during surgical procedure to evaluate progress. NUMBER OF IMAGES: 11 LIMITATIONS: None. FINDINGS: Fluoroscopic images from ERCP. There is opacification of the bile ducts and cystic duct r emnant. IMPRESSION: IMAGE(S) OBTAINED DURING PROCEDURE. COMMENT: Quality ID 145: Final reports for procedures using fluoroscopy that document radiation exp osure indices, or exposure time and number of fluorographic images (if radiation exposure indices are not available) Please consult full operative report of the attending physician for description of the procedure. TECHNICAL DOCUMENTATION: JOB ID: [id number] 2010 [employer]- All Rights Reserved Reading location - IP/workstation name: [email or web address]
[2019-12-07 06:05] LABS: ALBUMIN 3.5 g/dL (3.5-5.0); ALKALINE PHOSPHATASE 141 U/L (38-126); ASPARTATE AMINO TRANSFERASE 80 U/L (14-36); BILIRUBIN,DIRECT 0.5 mg/dL (0.0-0.4); BILIRUBIN,TOTAL 1.1 mg/dL (0.2-1.3); TOTAL PROTEIN 6.3 g/dL (6.3-8.2)
--- NOTE | 2019-12-07 09:09 | PDOC DISCHARGE SUMMARY ---
General - Admit/Disc Date/PCP Admission Date/Primary Care Provider: 12/05/19 05:26 RADHA SOTO MD Discharge Date: 12/07/19 - Discharge Diagnosis Final Diagnosis: choledocolithiasis, cholecystitis - Assessment Summary: This is a 24-year-old female admitted to the hospital with hyperbilirubinemia and gallstones. She was found to have choledocholithiasis. She underwent lapa roscopic cholecystectomy with cholangiogram. The stone was unable to be extracted using laparoscopic means. Secondary to this, Dr. North was consulted for ERCP. The patient underwent ERCP, and did well. The patient is now ambulating, tolerating a diet, and is felt that she has reached maximal hospital benefit. At this time she is medically fit for discharge. - Additional Information Resuscitation Status: Full Code Discharge Diet: As Tolerated Discharge Activity: No Lifting Over 10 Pounds, No Lifting/Push/Pulling Referrals: RADHA SOTO MD [Primary Care Provider] - Follow up as needed Prescriptions: Hydrocodone/Acetaminophen [[place] 10-325 mg Tablet] 1 tab PO Q6HP PRN #14 tablet PRN Reason: For Pain Home Medications: Hydrocodone/Acetaminophen [[place] 10-325 mg Tablet] 1 tab PO Q6HP PRN #14 tablet 12/07/19 History of Present Illiness History of Present Illness: TRACY LAN is a 24 year old female Physical Exam Vital Signs: Temp Pulse Resp BP Pulse Ox 99.0 F 62 16 109/31 L 97 12/07/19 07:51 12/07/19 07:51 12/07/19 07:51 12/07/19 07:51 12/07/19 07:51 Intake & Output 12/06/19 12/07/19 12/08/19 06:59 06:59 06:59 Intake Total 3926 1750 Output Total 2320 200 Balance 1606 1550 Weight 96.5 kg 92.6 kg Results Laboratory Results: WBC 11.8 10^3/uL (4.0-10.5) H 12/06/19 05:38 RBC 3.70 10^6/uL (3.72-5.28) L 12/06/19 05:38 Hgb 10.3 g/dL (12.0-15.5) L 12/06/19 05:38 Hct 30.9 % (36.0-47.0) L 12/06/19 05:38 MCV 84 fl (80-97) 12/06/19 05:38 MCH 27.8 pg (27.0-33.4) 12/06/19 05:38 MCHC 33.3 g/dL (32.0-36.0) 12/06/19 05:38 RDW 16.1 % (11.5-14.0) H 12/06/19 05:38 Plt Count 307 10^3/uL (150-450) 12/06/19 05:38 Lymph % (Auto) 10.8 % (13-45) L 12/06/19 05:38 [place] % (Auto) 8.1 % (3-13) 12/06/19 05:38 Eos % (Auto) 0.1 % (0-6) 12/06/19 05:38 Baso % (Auto) 0.2 % (0-2) 12/06/19 05:38 Absolute Neuts (auto) 9.5 10^3/uL (1.7-8.2) H 12/06/19 05:38 Absolute Lymphs (auto) 1.3 10^3/uL (0.5-4.7) 12/06/19 05:38 Absolute Monos (auto) 1.0 10^3/uL (0.1-1.4) 12/06/19 05:38 Absolute Eos (auto) 0.0 10^3/uL (0.0-0.6) 12/06/19 05:38 Absolute Basos (auto) 0.0 10^3/uL (0.0-0.2) 12/06/19 05:38 Seg Neutrophils % 80.8 % (42-78) H 12/06/19 05:38 Sodium 135.9 mmol/L (137-145) L 12/06/19 05:38 Potassium 4.2 mmol/L (3.6-5.0) 12/06/19 05:38 Chloride 105 mmol/L (98-107) 12/06/19 05:38 Carbon Dioxide 22 mmol/L (22-30) 12/06/19 05:38 Anion Gap 9 (5-19) 12/06/19 05:38 BUN 5 mg/dL (7-20) L 12/06/19 05:38 Creatinine 0.50 mg/dL (0.52-1.25) L 12/06/19 05:38 Est GFR ( Amer) > 60 (>60) 12/06/19 05:38 Est GFR (MDRD) Non-Af > 60 (>60) 12/06/19 05:38 Glucose 91 mg/dL (75-110) 12/06/19 05:38 Calcium 8.8 mg/dL (8.4-10.2) 12/06/19 05:38 Total Bilirubin 1.1 mg/dL (0.2-1.3) 12/07/19 04:54 Direct Bilirubin 0.5 mg/dL (0.0-0.4) H 12/07/19 04:54 Neonat Total Bilirubin Not Reportable 12/07/19 04:54 Neonat Direct Bilirubin Not Reportable 12/07/19 04:54 Neonat Indirect Bili Not Reportable 12/07/19 04:54 AST 80 U/L (14-36) H 12/07/19 04:54 ALT 151 U/L (<35) H 12/07/19 04:54 Alkaline Phosphatase 141 U/L (38-126) H 12/07/19 04:54 Total Protein 6.3 g/dL (6.3-8.2) 12/07/19 04:54 Albumin 3.5 g/dL (3.5-5.0) 12/07/19 04:54 Lipase 121.6 U/L (23-300) 12/05/19 03:00 Serum HCG, Qual NEGATIVE (NEGATIVE) 12/05/19 03:00 Urine Color JANE 12/05/19 03:00 Urine Appearance CLEAR 12/05/19 03:00 Urine pH 6.0 (5.0-9.0) 12/05/19 03:00 Ur Specific [place] 1.010 12/05/19 03:00 Urine Protein NEGATIVE mg/dL (NEGATIVE) 12/05/19 03:00 Urine Glucose (UA) NEGATIVE mg/dL (NEGATIVE) 12/05/19 03:00 Urine Ketones NEGATIVE mg/dL (NEGATIVE) 12/05/19 03:00 Urine Blood NEGATIVE (NEGATIVE) 12/05/19 03:00 Urine Nitrite NEGATIVE (NEGATIVE) 12/05/19 03:00 Urine Bilirubin NEGATIVE (NEGATIVE) 12/05/19 03:00 Urine Urobilinogen NEGATIVE mg/dL (<2.0) 12/05/19 03:00 Ur Leukocyte Esterase NEGATIVE (NEGATIVE) 12/05/19 03:00 Urine WBC (Auto) 2 /HPF 12/05/19 03:00 Urine RBC (Auto) 1 /HPF 12/05/19 03:00 Urine Bacteria (Auto) TRACE /HPF 12/05/19 03:00 Squamous Epi Cells Auto 3 /HPF 12/05/19 03:00 Urine Mucus (Auto) RARE /LPF 12/05/19 03:00 Urine Ascorbic Acid NEGATIVE (NEGATIVE) 12/05/19 03:00 SARS-CoV-2 (PCR) NEGATIVE (NEGATIVE) 12/05/19 18:43 Impressions: Cholangiogram 12/05/19 00:00 IMPRESSION: INTRAOPERATIVE CHOLANGIOGRAM. Abdomen Ultrasound 12/05/19 02:49 IMPRESSION: 1. No acute findings. 2. Poorly defined sludge or echogenic foci measuring up to 1.1 cm may indicate gallbladder sludge, adherent stones, and/or polyp. Negative sonographic Bae's test. Recommend three month ultrasound surveillance. 3. Moderate hepatic steatosis. 4. Limitation. Endo Retro Cholangiopancreatogram 12/06/19 00:00 IMPRESSION: IMAGE(S) OBTAINED DURING PROCEDURE. Fluoroscopy 12/06/19 00:00
[2019-12-07] MEDS: LEVOFLOXACIN 500 MG/D5W RTU 500 MG/100 ML RTUPB IV SCH (09:29)
[2019-12-07 10:38] VITALS: BP 127/66
== END 2019-12-07 11:17 | disposition home or self-care (01) | DRG 419 ==
LOC: ER 01:33 → EH 05:26 → 4W 07:57 → 4N 12-06 13:21
PROVIDERS: ADMIT Surgery; ATTEND Surgery
PROC: BF13YZZ Fluoroscopy of Gallbladder and Bile Ducts using Other Contrast (ICD-10-PCS; 2019-12-05)
PROC: 0FT44ZZ Resection of Gallbladder, Percutaneous Endoscopic Approach (ICD-10-PCS; principal; 2019-12-05 09:45)
PROC: 0F798ZZ Dilation of Common Bile Duct, Via Natural or Artificial Opening Endoscopic (ICD-10-PCS; 2019-12-06)
PROC: 0F7D8ZZ Dilation of Pancreatic Duct, Via Natural or Artificial Opening Endoscopic (ICD-10-PCS; 2019-12-06)
PROC: 0F758ZZ Dilation of Right Hepatic Duct, Via Natural or Artificial Opening Endoscopic (ICD-10-PCS; 2019-12-06)
PROC: 0F768ZZ Dilation of Left Hepatic Duct, Via Natural or Artificial Opening Endoscopic (ICD-10-PCS; 2019-12-06)
DX: K80.43 Calculus of bile duct with acute cholecystitis with obstruction (principal); K21.9 Gastro-esophageal reflux disease without esophagitis; K76.0 Fatty (change of) liver, not elsewhere classified; Z03.818 Encounter for observation for suspected exposure to other biological agents ruled out
CPT/HCPCS: 36415; 43264; 732; 74300; 74330; 76705; 790; 80048; 80053; 80076; 81001; 83690; 84703; 85025; 87040; 87635; 88304; 94799; 96361; 96374; 96375; 99140; 99285; C1757; C1769; J0330; J0696; J1100; J1170; J1885; J1956; J2250; J2270; J2370; J2405; J2704; J2710; J3010; J3490; J7030; Q9967